=== PATIENT | female | born 1945 | race Caucasian/White ===

== ENCOUNTER → 2017-03-05 | Outpatient (CLI) | payer MEDICARE ==
[~2017-03-05] MED LIST: ASPIRIN81 MG PO; CHANTIX0.5 MG PO; CINNAMON500 MG PO; CLONIDINE HCL0.1 MG PO; ENALAPRIL MALE2.5 MG PO; FLAXSEED-FISH-400 MG PO; GARLIC1000 MG PO; LIPITOR10 MG PO; METFORMIN HCL500 MG PO; METOPROLOL-HCT1 EAC1 PO; NIASPAN1000 MG PO; PROBIOTIC & AC1 EACH PO; SELENIUM200 MCG PO; ULTRAM50 MG PO; VITAMIN B-12500 MCG PO; VITAMIN D3400 UNI1 PO; WOMEN'S MULTI1 EACH PO
--- NOTE | 2017-03-05 15:02 | Diagnostic Imaging Report ---
PROCEDURE: Frontal and lateral views of the chest. COMPARISON: None. INDICATIONS: COPD FINDINGS: Lines/tubes: None. Lungs: The lungs are well inflated and clear. There is no evidence of pneumonia or pulmonary edema. Pleura: There is no pleural effusion or pneumothorax. Heart and mediastinum: The heart and the mediastinum are normal. Bones: No acute bony abnormality. IMPRESSION: 1. No acute cardiopulmonary disease. Cristian Wheeler M.D. Dictated by: Cristian Wheeler M.D. on 03/05/2017 at 15:11 Electronically approved by: Cristian Wheeler M.D. on 03/05/2017 at 15:11
== END ==
LOC: RAD 10:37
PROVIDERS: ATTEND Internal Medicine Cardiovascular Disease
DX: J44.9 Chronic obstructive pulmonary disease, unspecified (principal)
CPT/HCPCS: 71020

== ENCOUNTER 2017-03-07 11:04 | Inpatient (IN) | payer MEDICARE ==
[~2017-03-07] VITALS: Ht 160 cm; Wt 75.9 kg
[~2017-03-07 11:04] MED LIST changes: -ULTRAM50 MG PO
[2017-03-07] MEDS ORDERED: KETOROLAC TROMETHAMINE 30 MG/ML VIAL IV STA (11:26)
[2017-03-07] MEDS ORDERED: ONDANSETRON HCL INJ 2 MG/ML VIAL IV STA (11:26)
[2017-03-07] MEDS ORDERED: SODIUM CHLORIDE 0.9% 1000ML 1,000 ML IV SCH (11:30)
[2017-03-07 11:43] LABS: BASOPHILS % 0.2 % (0.0-1.0); EOSINOPHILS % 0.1 % (0.0-6.0); HEMATOCRIT 39.7 % (34.2-44.1); HEMOGLOBIN 13.3 g/dL (12.0-16.0); LYMPHOCYTES # (AUTO) 1.3 (1.0-3.2); LYMPHOCYTES % 7.8 % (18.0-39.1); MEAN CORPUSCULAR HEMOGLOBIN 30.2 pg (28-32); MEAN CORPUSCULAR HGB CONC 33.5 g/dL (31-35); MEAN CORPUSCULAR VOLUME 90.2 fL (81-99); MONOCYTES # (AUTO) 1.1 (0.2-0.8); MONOCYTES % 6.8 % (4.4-11.3); NEUTROPHILS # (AUTO) 13.9 (2.1-6.9); NEUTROPHILS % 84.7 % (38.7-80.0); PLATELET COUNT 231 x10e3/uL (140-360); RED CELL DISTRIBUTION WIDTH 13.2 % (11.7-14.4)
[2017-03-07 11:44] LABS: BILIRUBIN,URINE NEGATIVE (NEGATIVE); KETONES,URINE TRACE (NEGATIVE); LEUKOCYTE ESTERASE ,URINE NEGATIVE (NEGATIVE); NITRITE,URINE NEGATIVE (NEGATIVE); PROTEIN,URINE DIPSTICK NEGATIVE (NEGATIVE); URINE UROBILINOGEN 0.2 mg/dL (0.2 - 1)
[2017-03-07 11:49] LABS: CLARITY,URINE CLEAR (CLEAR); COLOR,URINE STRAW (YELLOW)
[2017-03-07] MEDS ORDERED: DIATRIZOATE MEGL/DIATRIZOA SOD 30 ML BTL PO ONE (11:50)
[2017-03-07 11:58] LABS: RBC,URINE >50 /HPF (0-5)
[2017-03-07 11:59] LABS: BACTERIA,URINE FEW /HPF; TRANSITIONAL EPI CELLS,URINE FEW
[2017-03-07 12:00] LABS: EPITHELIAL CELLS,URINE RARE /LPF
[2017-03-07] MEDS ORDERED: MORPHINE SULFATE 4 MG/ML SYR IV ONE (12:00)
[2017-03-07 12:05] LABS: ALANINE AMINOTRANSFERASE 21 IU/L (0-55); ALBUMIN 3.9 g/dL (3.5-5.0); ALBUMIN/GLOBULIN RATIO 1.1 (0.8-2.0); ALKALINE PHOSPHATASE 106 IU/L (40-150); ANION GAP 10.6 mmol/L (8-16); BLOOD UREA NITROGEN 21 mg/dL (7-26); BUN/CREATININE RATIO 28 (6-25); CALCIUM 10.1 mg/dL (8.4-10.2); CARBON DIOXIDE 27 mmol/L (22-29); CHLORIDE 102 mmol/L (98-107); CREATININE, SERUM 0.75 mg/dL (0.57-1.11); EST GLOMERULAR FILTRATION RATE > 60 ML/MIN (60-); GLUCOSE 153 mg/dL (74-118); POTASSIUM 3.6 mmol/L (3.5-5.1); SODIUM 136 mmol/L (136-145)
--- NOTE | 2017-03-07 15:24 | Diagnostic Imaging Report ---
EXAM: CT Abdomen and Pelvis WITH contrast INDICATION: Left lower quadrant pain COMPARISON: CT abdomen and pelvis from 11/30/2014 TECHNIQUE: Abdomen and pelvis were scanned utilizing a multidetector helical scanner from the lung base to the pubic symphysis after administration of IV contrast. Coronal and sagittal reformations were obtained. Routine protocol was performed. Scan was performed when during portal venous phase. IV CONTRAST: 100 mL of Isovue-370 ORAL CONTRAST: None RADIATION DOSE: Total DLP: 355.8 mGy*cm Estimated effective dose: (DLP x 0.015 x size factor) mSv COMPLICATIONS: None FINDINGS: LINES and TUBES: None. LOWER THORAX: Unremarkable HEPATOBILIARY: No focal hepatic lesions. No biliary ductal dilation. GALLBLADDER: No radio-opaque stones or sludge. No wall thickening. SPLEEN: No splenomegaly. PANCREAS: No focal masses or ductal dilatation. ADRENALS: No adrenal nodules KIDNEYS/URETERS: Kidneys enhance symmetrically. No right hydronephrosis or nephrolithiasis. No cystic or solid mass lesions. 6 mm calcified stone in the proximal left ureter resulting in mild hydronephrosis. This stone is 1.9 cm below the ureteropelvic junction. 2 mm calcified stone in the inferior pole of the left kidney better seen on coronal image 56. GI TRACT: No abnormal distention, wall thickening, or evidence of bowel obstruction. Extensive diverticulosis throughout the sigmoid colon without diverticulitis. Appendix is normal. PELVIC ORGANS/BLADDER: Calcified fibroma seen in the uterus. The urinary bladder is partially collapsed. LYMPH NODES: No lymphadenopathy. VESSELS: Unremarkable. PERITONEUM / RETROPERITONEUM: No free air or fluid. BONES: Multilevel degenerative changes of the lumbar spine. SOFT TISSUES: Unremarkable. IMPRESSION: Mild obstructing left proximal ureteral stone. Signed by: Dr. Kim Sherman M.D. on 03/07/2017 3:20 PM
[2017-03-07] MEDS ORDERED: METRONIDAZOLE 500MG/NS 100ML 100 ML IV ONE (15:30)
[2017-03-07] MEDS ORDERED: KETOROLAC TROMETHAMINE 30 MG/ML VIAL IM PRN (16:30)
[2017-03-07] MEDS ORDERED: LEVOFLOXACIN 500MG/D5W 100ML 100 ML IV ONE (16:30)
[2017-03-07] MEDS ORDERED: HYDROMORPHONE 1MG/1ML INJ IV PRN (16:30)
[2017-03-07] MEDS ORDERED: ONDANSETRON HCL INJ 2 MG/ML VIAL IV PRN (16:30)
[2017-03-07] MEDS ORDERED: DEXTROSE 50% SYRINGE 50 ML IV PRN (17:00)
[2017-03-07 18:11] VITALS: BP 145/70
[2017-03-07 18:12] VITALS: BP 145/70
[2017-03-07] MEDS ORDERED: MIDAZOLAM HCL 2 MG/2 ML VIAL ONE (18:45)
[2017-03-07] MEDS ORDERED: FENTANYL CITRATE/PF 100MCG/2 ML INJ ONE (18:45)
[2017-03-07] MEDS ORDERED: BELLADONNA/OPIUM 60 MG SUPP PR ONE (18:55)
[2017-03-07] MEDS ORDERED: IOPAMIDOL 610MG/1ML 300 MG/ML VIAL IV ONE (18:55)
[2017-03-07 20:38] VITALS: BP 109/56
[2017-03-07 20:42] VITALS: BP 183/74
[2017-03-07] MEDS ORDERED: HYDRALAZINE HCL 20 MG/ML VIAL IV PRN (23:45)
[2017-03-08] VITALS (7 sets, daily range): BP systolic 117–162; BP diastolic 58–76
[2017-03-08] MEDS: SODIUM CHLORIDE 0.9% 1000ML 1,000 ML IV SCH ×4 (00:30→17:03)
[2017-03-08] MEDS: CEFTRIAXONE SOD 1 GM VIAL IV SCH ×2 (03:31→23:01)
--- NOTE | 2017-03-08 06:29 | Consultation ---
DATE OF CONSULTATION: March 07, 2017 UROLOGY CONSULTATION REASON FOR CONSULTATION: Renal colic. HISTORY OF PRESENT ILLNESS: Rosa Isela Estrada is a 71-year-old woman with no previous urological history. She reports both stress and urge type urinary incontinence. She denies ever having previous urolithiasis. She denies problems with urinary tract infections. Denies hematuria and denies any dysuria at the present time. The patient had severe left-sided flank pain and reported to the emergency room. Was found to have obstructing proximal left ureterolithiasis with hydronephrosis. Urological consultation was sought. The patient last ate at 3 a.m. this morning. She has been n.p.o. since due to her discomfort. PAST MEDICAL AND SURGICAL HISTORY 1. Status post low back surgery. 2. 1, para 1 by spontaneous vaginal delivery. 3. Status post tonsillectomy. 4. Diabetes mellitus. 5. Hypertension. ALLERGIES: CODEINE AND SOMA. SOCIAL HISTORY: The patient smokes 1-pack per day of cigarettes. Denies ethanol or drug use. 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 FAMILY HISTORY: Noncontributory to the active urological problems. REVIEW OF SYSTEMS: As consistent with the above history of present illness and past medical history, and otherwise negative for all other systems. CURRENT MEDICATIONS: Please refer to the MAR. PHYSICAL EXAMINATION GENERAL: A healthy appearing, very pleasant 71-year-old woman lying in bed in no apparent distress. VITALS: She is currently afebrile. Vital signs currently stable. ABDOMEN: Soft and nondistended. She has left costovertebral angle tenderness. Kidneys are not palpable without hepatosplenomegaly. No obvious evidence of hernia. For the remaining physical examination systems, please refer to the admission history and physical on the chart, as well as the emergency room physician note. LABORATORY STUDIES: Urine culture is pending. White blood cell count is elevated at 16,360, hemoglobin 13.3 and platelets 231,000. The patient's creatinine is normal at 0.75. Glucose slightly elevated at 153. Urinalysis significant for microhematuria and pyuria, but no significant bacteria. CT scan of the abdomen and pelvis was done per stone protocol, and showed a 2-mm stone at the inferior pole of the left kidney, and a 6 mm obstructing stone in the proximal left ureter with left-sided hydronephrosis. ASSESSMENT 1. Left renal colic. 2. Mixed type urinary incontinence. 3. Leukocytosis. 4. Pyuria. 5. Microhematuria. 6. Left small nephrolithiasis. 7. Obstructing 6 mm proximal left ureterolithiasis. 8. Left hydronephrosis due to stone. PLAN 1. I posted the patient for cystoscopy and stent placement. We will relieve her blockage, and follow this will follow the patient up long-term and manage her stones. 2. Intravenous antibiotics have been ordered by the emergency room physician as instructed. 3. The patient is a smoker, and she was encouraged to quit smoking, which has already been told to her on multiple occasions by Dr. Hager. Thank you very much for involving us in the care of your patient. Will be happy to follow her along with you, as well as an outpatient. Job#: [id number] RI cc:ERIKA HAGER MD
[2017-03-08 06:47] LABS: BASOPHILS % 0.2 % (0.0-1.0); HEMATOCRIT 33.8 % (34.2-44.1); HEMOGLOBIN 11.6 g/dL (12.0-16.0); LYMPHOCYTES % 9.3 % (18.0-39.1); MEAN CORPUSCULAR HEMOGLOBIN 30.3 pg (28-32); MEAN CORPUSCULAR HGB CONC 34.3 g/dL (31-35); MEAN CORPUSCULAR VOLUME 88.3 fL (81-99); MONOCYTES # (AUTO) 0.7 (0.2-0.8); MONOCYTES % 6.8 % (4.4-11.3); NEUTROPHILS # (AUTO) 8.7 (2.1-6.9); NEUTROPHILS % 83.2 % (38.7-80.0); PLATELET COUNT 196 x10e3/uL (140-360); RED BLOOD COUNT 3.83 x10e6/uL (3.6-5.1); RED CELL DISTRIBUTION WIDTH 13.6 % (11.7-14.4)
[2017-03-08 07:14] LABS: ANION GAP 11.7 mmol/L (8-16); BLOOD UREA NITROGEN 12 mg/dL (7-26); BUN/CREATININE RATIO 17 (6-25); CALCIUM 9.5 mg/dL (8.4-10.2); CARBON DIOXIDE 24 mmol/L (22-29); CHLORIDE 104 mmol/L (98-107); EST GLOMERULAR FILTRATION RATE > 60 ML/MIN (60-); GLUCOSE 155 mg/dL (74-118); POTASSIUM 3.7 mmol/L (3.5-5.1); SODIUM 136 mmol/L (136-145)
[2017-03-08] MEDS ORDERED: SODIUM CHLORIDE 0.9% 50ML 50 ML ONE (07:31)
[2017-03-08] MEDS ORDERED: IOPAMIDOL 370 MG/ML 200 ML INFUS..BTL INJ ONE (07:31)
[2017-03-08] MEDS: PHENAZOPYRIDINE HCL 100 MG TAB PO SCH ×3 (08:14→17:03)
[2017-03-08] MEDS ORDERED: LIDOCAINE HCL 2% LOCAL INJ 5 ML SDV VIAL INJ ONE (18:20)
[2017-03-08] MEDS ORDERED: ONDANSETRON HCL INJ 2 MG/ML VIAL ONE (18:20)
[2017-03-08] MEDS ORDERED: EPHEDRINE SULFATE INJ 50 MG/10 ML SYR ONE (18:20)
[2017-03-08] MEDS ORDERED: DEXAMETHASONE SOD PHOS INJ 4 MG/ML VIAL ONE (18:20)
[2017-03-08] MEDS ORDERED: SEVOFLURANE INHAL SOLN 250 ML PEN BTL ONE (18:20)
[2017-03-08] MEDS ORDERED: PROPOFOL IV EMULSION 10 MG/ML 20 ML VIAL ONE (18:20)
[2017-03-09 01:32] VITALS: BP 141/68
[2017-03-09] MEDS: SODIUM CHLORIDE 0.9% 1000ML 1,000 ML IV SCH (04:36)
[2017-03-09 07:42] VITALS: BP 166/79
[2017-03-09] MEDS: PHENAZOPYRIDINE HCL 100 MG TAB PO SCH (09:05)
[2017-03-09] MEDS ORDERED: ULTRAM50 MG PO (10:07)
== END 2017-03-09 11:07 | disposition home or self-care (01) | DRG 690 ==
LOC: ER 11:06 → ERHOLD 16:57 → IMCU 17:22 → OBSVTOIN 03-08 20:06
PROVIDERS: ADMIT Internal Medicine; ATTEND Internal Medicine
PROC: 0T7D8DZ Dilation of Urethra with Intraluminal Device, Via Natural or Artificial Opening Endoscopic (ICD-10-PCS; principal; 2017-03-08)
PROC: BT1F1ZZ Fluoroscopy of Left Kidney, Ureter and Bladder using Low Osmolar Contrast (ICD-10-PCS; 2017-03-08)
DX: N13.6 Pyonephrosis (principal); I10 Essential (primary) hypertension; N20.0 Calculus of kidney; E11.9 Type 2 diabetes mellitus without complications; F17.210 Nicotine dependence, cigarettes, uncomplicated; D64.9 Anemia, unspecified; N39.46 Mixed incontinence
CPT/HCPCS: 36415; 74177; 74420; 80048; 80053; 81001; 82948; 83970; 84550; 85025; 87086; 87186; 96361; 99284; G0378; J0696; J1100; J1956; J2001; J2250; J2405; J7030; Q9967

== ENCOUNTER → 2017-04-06 | Outpatient (CLI) | payer MEDICARE ==
[~2017-04-06] MED LIST changes: +METOPROLOL SUCC50 MG PO; +METOPROLOL TART50 MG PO; +ULTRAM50 MG PO
--- NOTE | 2017-04-06 14:08 | Diagnostic Imaging Report ---
PROCEDURE:X-RAY ABDOMEN - KUB COMPARISON:Abdominal CT 03/07/2017 INDICATIONS:LEFT SIDE CALCULUS CHECK UP FINDINGS: Left ureteral stent in place. Previously noted left UPJ stone which was radiographically apparent on the cruise coordinator radiograph on the prior CT is currently no longer visualized. A 0.6 cm calcification overlies the left inferior renal silhouette. A 0.3 cm calcification overlies the interpolar region of the left renal silhouette. There are no calcifications projected over the right renal shadow, expected course of the ureters or bladder. Calcified uterine fibroids. There is a non-obstructed bowel-gas pattern. There are no acute osseous abnormalities. The lung bases are clear. CONCLUSION: Left ureteral stent in place. Previous left UPJ stone is not visualized along the UPJ, ureter, or bladder. A new similar sized calcification overlying the inferior left renal silhouette may represent retrograde movement of the previous stone, a new stone, or calcified enteric contents. Dictated by: Gerardo Cevallos M.D. on 04/06/2017 at 14:08 Electronically approved by: Gerardo Cevallos M.D. on 04/06/2017 at 14:08
== END ==
LOC: RAD 13:22
PROVIDERS: ATTEND Urology
DX: N20.0 Calculus of kidney (principal); R30.0 Dysuria; T19.1XXA Foreign body in bladder, initial encounter; F17.200 Nicotine dependence, unspecified, uncomplicated
CPT/HCPCS: 74018

== ENCOUNTER → 2017-04-17 | Day surgery (SDC) | payer MEDICARE ==
[2017-04-15 11:37] LABS: BASOPHILS # (AUTO) 0.1 (0.0-0.1); BASOPHILS % 0.7 % (0.0-1.0); EOSINOPHILS # (AUTO) 0.1 (0.0-0.4); EOSINOPHILS % 1.5 % (0.0-6.0); HEMATOCRIT 39.8 % (34.2-44.1); HEMOGLOBIN 13.8 g/dL (12.0-16.0); LYMPHOCYTES # (AUTO) 1.8 (1.0-3.2); LYMPHOCYTES % 24.3 % (18.0-39.1); MEAN CORPUSCULAR HEMOGLOBIN 30.3 pg (28-32); MEAN CORPUSCULAR HGB CONC 34.7 g/dL (31-35); MEAN CORPUSCULAR VOLUME 87.3 fL (81-99); MONOCYTES # (AUTO) 0.7 (0.2-0.8); MONOCYTES % 9.9 % (4.4-11.3); NEUTROPHILS # (AUTO) 4.7 (2.1-6.9); NEUTROPHILS % 63.5 % (38.7-80.0); PLATELET COUNT 274 x10e3/uL (140-360); RED BLOOD COUNT 4.56 x10e6/uL (3.6-5.1); RED CELL DISTRIBUTION WIDTH 13.4 % (11.7-14.4)
[2017-04-15 11:53] LABS: ANION GAP 14.9 mmol/L (8-16); BLOOD UREA NITROGEN 8 mg/dL (7-26); BUN/CREATININE RATIO 11 (6-25); CALCIUM 10.6 mg/dL (8.4-10.2); CARBON DIOXIDE 26 mmol/L (22-29); CHLORIDE 99 mmol/L (98-107); EST GLOMERULAR FILTRATION RATE > 60 ML/MIN (60-); GLUCOSE 88 mg/dL (74-118); POTASSIUM 4.9 mmol/L (3.5-5.1); SODIUM 135 mmol/L (136-145)
[~2017-04-17] MED LIST changes: +CEFTRIAXONE SOD 1 GM VIAL ONE; +DEXAMETHASONE SOD PHOS INJ 4 MG/ML VIAL ONE; +EPHEDRINE SULFATE INJ 50 MG/10 ML SYR ONE; +FENTANYL CITRATE/PF 100MCG/2 ML INJ ONE; +GLYCOPYRROLATE INJ 1MG/ 5 ML SYR ONE; +LIDOCAINE HCL 2% LOCAL INJ 5 ML SDV VIAL INJ ONE; +MIDAZOLAM HCL 2 MG/2 ML VIAL ONE; +ONDANSETRON HCL INJ 2 MG/ML VIAL ONE; +PHENYLEPHRINE HCL 1% 10 MG/ML VIAL ONE; +PROPOFOL IV EMULSION 10 MG/ML 20 ML VIAL ONE; +SEVOFLURANE INHAL SOLN 250 ML PEN BTL ONE
--- NOTE | 2017-04-17 09:45 | Diagnostic Imaging Report ---
PROCEDURE:X-RAY ABDOMEN - KUB COMPARISON:04/06/2017. INDICATIONS:LEFT SIDED KIDNEY STONES FINDINGS: Stable 6 mm crescentic calculus projecting over the lower pole of the left shadow, and a 3 mm calculus projecting over the interpolar region. Unchanged position of left internal ureteral stent without additional calculus identified along the stent course. No suspicious calcifications project over the right renal shadow. Bowel gas pattern is nonobstructive. Calcified degenerated uterine fibroids are again noted. Degenerative disc changes of the lower lumbar spine. CONCLUSION: stable left renal calculi and left internal ureteral stent position relative to 04/06/2017. Dictated by: Jimy Lainez M.D. on 04/17/2017 at 9:46 Electronically approved by: Jimy Lainez M.D. on 04/17/2017 at 9:46
--- OUTSIDE RECORDS SUMMARY | 2017-04-17 10:14 | XMS REPORT ---
Author [facility] Address Unknown Phone Unavailable Care Team Providers Care Adjunct Spanish Instructor Name Role Phone ILA BURNS Unavailable Unavailable ADDI PAINTING Unavailable Unavailable MARTELL WALSH Unavailable Unavailable Problems This patient has no known problems. Allergies, Adverse Reactions, Alerts This patient has no known allergies or adverse reactions. Medications This patient has no known medications. Results Test Description Test Time Test Comments Text Results Atomic Results Result Comments ABDOMEN-1VIEW (KUB) [place] [address] Patient Name: LORENE VELASCO MR #: [id number] : 1945 Age/Sex: 71/F Req #: [id number] Adm Physician: Ordered by: ILA BURNS MD Report #: [id number] Location: OR Room/Bed: Procedure: [id number] DX/ABDOMEN-1VIEW (KUB) Exam Date: 04/17/17 Exam Time : 919 REPORT STATUS: Signed PROCEDURE: X-RAY ABDOMEN - KUB COMPARISON: 04/06/2017. INDICATIONS: LEFT SIDED KIDNEY STONES FINDINGS: Stable 6 mm crescentic calculus projecting over the lower pole of the left shadow, and a 3 mm calculus projecting over the interpolar region. Unchanged position of left internal ureteral stent without additional calculus identified along the stent course. No suspicious calcifications project over the right renal shadow. Bowel gas pattern is nonobstructive. Calcified degenerated uterine fibroids are again noted. Degenerative disc changes of the lower lumbar spine. CONCLUSION: stable left renal calculi and left internal ureteral stent position relative to 04/06/2017. Dictated by: Malou Crockett M.D. on 04/17/2017 at 9:46 Electronically approved by: Malou Crockett M.D. on 04/17/2017 at 9:46 Dictated By: MALOU CROCKETT MD 5 Transcribed By: REGAN on 04/17/17945 COPY TO: ILA BURNS MD ABDOMEN-1VIEW (KUB) [place] [address] Patient Name: LORENE VELASCO MR #: [id number] : 1945 Age/Sex: 71/F Req #: [id number] Adm Physician: Ordered by: ILA BURNS MD Report #: [id number] Location: [facility] Room/Bed: Procedure: [id number] DX/ABDOMEN-1VIEW (KUB) Exam Date: 04/06/17 Exam Time : 1330 REPORT STATUS: Signed PROCEDURE: X-RAY ABDOMEN - KUB COMPARISON: Abdominal CT 03/07/2017 INDICATIONS: LEFT SIDE CALCULUS CHECK UP FINDINGS: Left ureteral stent in place. Previously noted left UPJ stone which was radiographically apparent on the document manager radiograph on the prior CT is currently no longer visualized. A 0.6 cm calcification overlies the left inferior renal silhouette. A 0.3 cm calcification overlies the interpolar region of the left renal silhouette. There are no calcifications projected over the right renal shadow, expected course of the ureters or bladder. Calcified uterine fibroids. There is a non-obstructed bowel-gas pattern. There are no acute osseous abnormalities. The lung bases are clear. CONCLUSION: Left ureteral stent in place. Previous left UPJ stone is not visualized along the UPJ, ureter, or bladder. A new similar sized calcification overlying the inferior left renal silhouette may represent retrograde movement of the previous stone, a new stone, or calcified enteric contents. Dictated by: Gerardo Castle M.D. on 04/06/2017 at 14:08 Electronically approved by: Gerardo Castle M.D. on 04/06/2017 at 14:08 Dictated By: GERARDO CASTLE MD 07 Transcribed By: REGAN on 04/06/171407 COPY TO: ILA BURNS MD CT ABDOMEN/PELVIS W [place] [address] Patient Name: LORENE VELASCO MR #: [id number] : 1945 Age/Sex: 71/F Req #: [id number] Adm Physician: Ordered by: ADDI PAINTING MD Report #: [id number] Location: ER Room/Bed: Procedure: [id number] CT/CT ABDOMEN/PELVIS W Exam Date: 03/07/17 Exam Time: 1441 REPORT STATUS: Signed EXAM: CT Abdomen and Pelvis WITH contrast INDICATION: Left lower quadrant pain COMPARISON: CT abdomen and pelvis from 11/30/2014 TECHNIQUE: Abdomen and pelvis were scanned utilizing a multidetector helical scanner from the lung base to the pubic symphysis after administration of IV contrast. Coronal and sagittal reformations were obtained. Routine protocol was performed. Scan was performed when during portal venous phase. IV CONTRAST: 100 mL of Isovue-370 ORAL CONTRAST: None RADIATION DOSE: Total DLP: 355.8 mGy*cm Estimated effective dose: (DLP x 0.015 x size factor) mSv COMPLICATIONS: None FINDINGS: LINES and TUBES: None. LOWER THORAX: Unremarkable HEPATOBILIARY: No focal hepatic lesions. No biliary ductal dilation. GALLBLADDER: No radio-opaque stones or sludge. No wall thickening. SPLEEN: No splenomegaly. PANCREAS: No focal masses or ductal dilatation. ADRENALS: No adrenal nodules KIDNEYS/URETERS: Kidneys enhance symmetrically. No right hydronephrosis or nephrolithiasis. No cystic or solid mass lesions. 6 mm calcified stone in the proximal left ureter resulting in mild hydronephrosis. This stone is 1.9 cm below the ureteropelvic junction. 2 mm calcified stone in the inferior pole of the left kidney better seen on coronal image 56. GI TRACT: No abnormal distention, wall thickening, or evidence of bowel obstruction. Extensive diverticulosis throughout the sigmoid colon without diverticulitis. Appendix is normal. PELVIC ORGANS/BLADDER: Calcified fibroma seen in the uterus. The urinary bladder is partially collapsed. LYMPH NODES: No lymphadenopathy. VESSELS: Unremarkable. PERITONEUM / RETROPERITONEUM: No free air or fluid. BONES: Multilevel degenerative changes of the lumbar spine. SOFT TISSUES: Unremarkable. IMPRESSION: Mild obstructing left proximal ureteral stone. Signed by: Dr. Neeta Barlow M.D. on 03/07/2017 3:20 PM Dictated By: NEETA BARLOW MD 1520 Transcribed By: LETA on 03/07/17 1520 COPY TO: ADDI PAINTING MD CHEST 2 VIEWS [place] [address] Patient Name: LORENE VELASCO MR #: [id number] : 1945 Age/Sex: 71/F Req #: [id number] Adm Physician: Ordered by: MARTELL WALSH MD Report #: [id number] Location: [facility] Room/Bed: Procedure: [id number] DX/CHEST 2 VIEWS Exam Date: 03/05/17 Exam Time : 1115 REPORT STATUS: Signed PROCEDURE: Frontal and lateral views of the chest. COMPARISON: None. INDICATIONS: COPD FINDINGS : Lines/tubes: None. Lungs: The lungs are well inflated and clear. There is no evidence of pneumonia or pulmonary edema. Pleura: There is no pleural effusion or pneumothorax. Heart and mediastinum: The heart and the mediastinum are normal. Bones: No acute bony abnormality. IMPRESSION: 1. No acute cardiopulmonary disease. Cristian Cam M.D. Dictated by: Cristian Cam M.D. on 03/05/2017 at 15: 11 Electronically approved by: Cristian Cam M.D. on 03/05/2017 at 15:11 Dictated By: CASEY CAM MD, MD 10 Transcribed By: REGAN on 03/05 COPY TO: MARTELL WALSH MD
--- NOTE | 2017-06-09 09:04 | Operative Report ---
DATE OF PROCEDURE: April 17, 2017 PREOPERATIVE DIAGNOSIS: Left nephrolithiasis. POSTOPERATIVE DIAGNOSIS: Left nephrolithiasis. OPERATIONS PERFORMED 1. Staged left-sided extracorporeal shockwave lithotripsy. 2. Supervision of fluoroscopy. No radiologist present. ANESTHESIA: General. COMPLICATIONS: None. CLINICAL SUMMARY: Rosa Isela Estrada is a 71-year-old woman with left nephrolithiasis who is brought for a staged procedure. She is aware of the risks of bleeding, infection, injury to adjacent structures, need for additional procedures, and elected to proceed. OPERATIVE PROCEDURE IN DETAIL: Informed consent was verified. Rosa Isela Estrada was properly identified and taken to the operating room and placed on the lithotripsy table in the supine position. Anesthesia was uneventfully begun. The patient's left nephrolithiasis was localized with biplanar fluoroscopy. A total of 3000 shocks were delivered with excellent fragmentation of the left nephrolithiasis. The patient was then uneventfully reversed from anesthesia and taken to the recovery room in stable condition. There were no complications to the procedure. She tolerated the procedure well. Plans will be to return the patient to the operating room to remove her stent, perform a ureteroscopy and manage any residual stones. Job#: [id number] RI cc:ERIKA ARDON MD
== END | disposition home or self-care (01) ==
LOC: OR 10:12
PROVIDERS: ATTEND Urology
DX: N20.0 Calculus of kidney (principal); Z96.0 Presence of urogenital implants; I10 Essential (primary) hypertension; I49.9 Cardiac arrhythmia, unspecified; E11.9 Type 2 diabetes mellitus without complications; K58.9 Irritable bowel syndrome, unspecified; R05 Cough; F17.200 Nicotine dependence, unspecified, uncomplicated; Z01.810 Encounter for preprocedural cardiovascular examination; Z01.812 Encounter for preprocedural laboratory examination; Z79.82 Long term (current) use of aspirin
CPT/HCPCS: 36415 ×2; 50590; 74018; 80048; 82948; 85025; 93005; J0696; J1100; J2001; J2250; J2370; J2405

== ENCOUNTER → 2017-06-05 | Day surgery (SDC) | payer MEDICARE ==
[2017-06-04 09:38] LABS: BASOPHILS # (AUTO) 0.1 (0.0-0.1); BASOPHILS % 0.7 % (0.0-1.0); EOSINOPHILS # (AUTO) 0.1 (0.0-0.4); EOSINOPHILS % 1.2 % (0.0-6.0); HEMATOCRIT 40.7 % (34.2-44.1); HEMOGLOBIN 13.8 g/dL (12.0-16.0); LYMPHOCYTES # (AUTO) 1.9 (1.0-3.2); LYMPHOCYTES % 22.3 % (18.0-39.1); MEAN CORPUSCULAR HEMOGLOBIN 29.4 pg (28-32); MEAN CORPUSCULAR HGB CONC 33.9 g/dL (31-35); MEAN CORPUSCULAR VOLUME 86.8 fL (81-99); MONOCYTES % 11.8 % (4.4-11.3); NEUTROPHILS # (AUTO) 5.3 (2.1-6.9); NEUTROPHILS % 63.8 % (38.7-80.0); PLATELET COUNT 277 x10e3/uL (140-360); RED BLOOD COUNT 4.69 x10e6/uL (3.6-5.1); RED CELL DISTRIBUTION WIDTH 13.6 % (11.7-14.4)
[2017-06-04 09:53] LABS: ANION GAP 11.8 mmol/L (8-16); BLOOD UREA NITROGEN 10 mg/dL (7-26); BUN/CREATININE RATIO 14 (6-25); CALCIUM 10.7 mg/dL (8.4-10.2); CARBON DIOXIDE 28 mmol/L (22-29); CHLORIDE 98 mmol/L (98-107); CREATININE, SERUM 0.74 mg/dL (0.57-1.11); EST GLOMERULAR FILTRATION RATE > 60 ML/MIN (60-); GLUCOSE 99 mg/dL (74-118); POTASSIUM 3.8 mmol/L (3.5-5.1); SODIUM 134 mmol/L (136-145)
[~2017-06-05] MED LIST changes: +BELLADONNA/OPIUM 60 MG SUPP PR ONE; +GENTAMICIN 80MG/NS 100 ML 100 ML IV ONE; -GLYCOPYRROLATE INJ 1MG/ 5 ML SYR ONE; +IOPAMIDOL 610MG/1ML 300 MG/ML VIAL IV ONE; -PHENYLEPHRINE HCL 1% 10 MG/ML VIAL ONE; +VASOPRESSIN INJ 20 UNIT/ML VIAL ONE
--- NOTE | 2017-06-05 11:24 | Diagnostic Imaging Report ---
PROCEDURE:X-RAY ABDOMEN - KUB COMPARISON:04/17/2017 INDICATIONS:PREOPERATIVE XRAY FOR STENT REMOVAL SURGERY FINDINGS: One view of the abdomen (AP supine). A left nephroureteral stent is in expected position. Multiple stones are projected over the interpolar region and inferior pole of the left kidney, measuring up to 4 mm. No dilated loops of bowel or abnormal air-fluid levels patterns. No free air underneath the diaphragm. Visualized portions of the lung bases are clear. Five non-rib bearing lumbar type vertebral bodies identified. There are multilevel degenerative changes of the lower lumbar spine and sacroiliac joints with at least moderate spondylosis at L3-L4 and L4-L5. Stable pelvic calcifications are likely related to fibroids. CONCLUSION: Stable position of the left nephroureteral stent. Left renal calculi as above. Dictated by: Jong Colon M.D. on 06/05/2017 at 11:25 Electronically approved by: Jong Colon M.D. on 06/05/2017 at 11:25
--- NOTE | 2017-07-21 02:01 | Operative Report ---
DATE OF PROCEDURE: June 05, 2017 PREOPERATIVE DIAGNOSES 1. Left nephrolithiasis. 2. Left indwelling ureteral stent. POSTOPERATIVE DIAGNOSIS: 1. Left nephrolithiasis. 2. Left indwelling ureteral stent. 3. Grade-2 cystocele. 4. Grade-1 rectocele. 5. 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 OPERATIONS PERFORMED: Note: These are all staged procedures as part of multistage, multistep process of managing patient's urolithiasis. 1. Cystourethroscopy with complicated removal of left indwelling ureteral stent (separate procedure performed with separate scope for the diagnosis of stent). 2. Left ureteroscopy with stone manipulation and extraction (separate procedure performed twice for 2 separate ureteral stones). 3. Radiological services for supervision and interpretation of ureteroscopy. 4. Interpretation of retrograde ureteropyelography. 5. Pelvic examination under anesthesia. ANESTHESIA: General. COMPLICATIONS: None. CLINICAL SUMMARY: Rosa Isela Estrada is a 71-year-old woman, who underwent prior stone procedure. She was brought to remove her stent and hopefully render her stone-free. She is aware the risks of the risks of bleeding infection injury to adjacent structures need for additional procedures and elected to proceed. OPERATIVE PROCEDURE IN DETAIL: Informed consent was verified. Rosa Isela Estrada was properly identified taken to the operating room. Placed on the cystoscopy table in supine position. Anesthesia was uneventfully begun. The patient was then carefully and gently repositioned in the dorsal lithotomy position with all pressure points well padded. Her genitalia were prepared and draped in usual sterile fashion. A 22.5-Yi cystoscope sheath with obturator in place was atraumatically inserted into the patient's urethra and the bladder was drained. Panendoscopy of urinary bladder revealed no suspicious mucosal lesions, no tumors, no stones, and no diverticula. Normally positioned and configured ureteral orifices were identified. There was stent emerging from left ureteral orifice. A guidewire was then placed alongside the stent and guided below the patient's kidneys. The stent was then grasped, completely removed and discarded. Semirigid ureteroscope was then placed alongside the guidewire and guided into the patient's left ureter. No stones were identified. A secondary guidewire was placed. Flexible ureteroscope was then placed over the guidewire and guided to level of patient's kidney. Panendoscopy revealed 2 stones. One stone was grasped with Nitinol tipless basket and extracted atraumatically. The ureteroscope was reintroduced. Careful panendoscopy of the intrarenal pelvic system revealed a Drew's plaque, but only 1 stone remaining. We grasped the 2nd stone and extracted it atraumatically. Interpretation of retrograde ureteropyelography: Contrast was instilled in retrograde fashion on the left hand side. Mild fullness of the collecting system was noted. There was mild caliceal blunting. No suspicious mucosal lesions could be identified. The ureter was unremarkable. Unobstructed drainage was observed fluoroscopically at the end of the case. The patient's bladder was then drained. Cystoscope was withdrawn. Pelvic examination under anesthesia revealed a grade-2 cystocele, grade-1 rectocele. There was atrophic vaginitis with vaginal os stenosis. The patient was then uneventfully reversed from anesthesia and taken to recovery room in stable condition. There were no complications to the procedure. She tolerated the procedure well. Explicit postoperative instructions were given. Will follow the patient up in the office. Job#: [id number] CQ cc:ERIKA ARDON MD
== END | disposition home or self-care (01) ==
LOC: OR 10:24
PROVIDERS: ATTEND Urology
DX: N20.0 Calculus of kidney (principal); Z46.6 Encounter for fitting and adjustment of urinary device; N28.89 Other specified disorders of kidney and ureter; N39.0 Urinary tract infection, site not specified; N81.10 Cystocele, unspecified; N81.6 Rectocele; N95.2 Postmenopausal atrophic vaginitis; I10 Essential (primary) hypertension; E78.6 Lipoprotein deficiency; E11.9 Type 2 diabetes mellitus without complications; K58.9 Irritable bowel syndrome, unspecified; I49.1 Atrial premature depolarization; Z01.810 Encounter for preprocedural cardiovascular examination; Z01.812 Encounter for preprocedural laboratory examination; Z79.84 Long term (current) use of oral hypoglycemic drugs; Z87.01 Personal history of pneumonia (recurrent)
CPT/HCPCS: 36415 ×2; 52352; 74018; 74420; 80048; 82948; 85025; 88300; 93005; J0696; J1100; J1580; J2001; J2250; J2405; Q9967

== ENCOUNTER 2017-06-06 08:59 | Inpatient (IN) | payer MEDICARE ==
[~2017-06-06] VITALS: Ht 160 cm; Wt 72.6 kg
[~2017-06-06 08:59] MED LIST changes: -BELLADONNA/OPIUM 60 MG SUPP PR ONE; -CEFTRIAXONE SOD 1 GM VIAL ONE; -DEXAMETHASONE SOD PHOS INJ 4 MG/ML VIAL ONE; -EPHEDRINE SULFATE INJ 50 MG/10 ML SYR ONE; -FENTANYL CITRATE/PF 100MCG/2 ML INJ ONE; -GENTAMICIN 80MG/NS 100 ML 100 ML IV ONE; -IOPAMIDOL 610MG/1ML 300 MG/ML VIAL IV ONE; -LIDOCAINE HCL 2% LOCAL INJ 5 ML SDV VIAL INJ ONE; -MIDAZOLAM HCL 2 MG/2 ML VIAL ONE; -ONDANSETRON HCL INJ 2 MG/ML VIAL ONE; -PROPOFOL IV EMULSION 10 MG/ML 20 ML VIAL ONE; -SEVOFLURANE INHAL SOLN 250 ML PEN BTL ONE; -VASOPRESSIN INJ 20 UNIT/ML VIAL ONE
[2017-06-06] MEDS ORDERED: ACETAMINOPHEN 1000 MG/100 ML IV STA (09:16)
[2017-06-06] MEDS ORDERED: SODIUM CHLORIDE 0.9% 1000ML 1,000 ML IV STA ×2 (09:16→10:28)
--- NOTE | 2017-06-06 09:56 | Diagnostic Imaging Report ---
EXAMINATION: Chest, CHEST SINGLE (PORTABLE) INDICATION: Chest pain COMPARISON: Chest 2 views 03/05/2017 FINDINGS: LINES: None. Heart: Normal cardiac silhouette. Vascular: The pulmonary vasculature is within normal limits. Atherosclerotic calcifications of the aortic arch. Mediastinum: No mediastinal, hilar, or axillary mass or lymphadenopathy. Lungs: No parenchymal mass. No focal consolidation. Bibasilar atelectasis. Pleura: No pleural effusion. No pneumothorax. Bones: No acute osseous abnormality. Degenerative changes of the thoracic spine. Soft tissues: Normal. Impression: No acute radiographic abnormality. Signed by: Dr. Medardo Haines M.D. on 06/06/2017 9:52 AM
[2017-06-06 10:04] LABS: BASOPHILS % 0.3 % (0.0-1.0); LYMPHOCYTES # (AUTO) 0.4 (1.0-3.2); MEAN CORPUSCULAR HEMOGLOBIN 29.9 pg (28-32); MEAN CORPUSCULAR HGB CONC 35.1 g/dL (31-35); MEAN CORPUSCULAR VOLUME 85.1 fL (81-99); MONOCYTES # (AUTO) 0.5 (0.2-0.8); MONOCYTES % 3.6 % (4.4-11.3); NEUTROPHILS # (AUTO) 11.9 (2.1-6.9); NEUTROPHILS % 92.6 % (38.7-80.0); PLATELET COUNT 236 x10e3/uL (140-360); RED BLOOD COUNT 4.35 x10e6/uL (3.6-5.1); RED CELL DISTRIBUTION WIDTH 13.9 % (11.7-14.4)
[2017-06-06 10:17] LABS: INR 1.23; PROTHROMBIN TIME 14.6 seconds (11.9-14.5)
[2017-06-06 10:18] LABS: PARTIAL THROMBOPLASTIN TIME 37.3 seconds (23.8-35.5)
[2017-06-06 10:28] LABS: ALANINE AMINOTRANSFERASE 23 IU/L (0-55); ALBUMIN 3.1 g/dL (3.5-5.0); ALBUMIN/GLOBULIN RATIO 0.9 (0.8-2.0); ALKALINE PHOSPHATASE 82 IU/L (40-150); ANION GAP 13.7 mmol/L (8-16); BLOOD UREA NITROGEN 12 mg/dL (7-26); BUN/CREATININE RATIO 15 (6-25); CARBON DIOXIDE 24 mmol/L (22-29); CHLORIDE 95 mmol/L (98-107); CREATINE KINASE 102 IU/L (29-168); EST GLOMERULAR FILTRATION RATE > 60 ML/MIN (60-); GLUCOSE 110 mg/dL (74-118); MAGNESIUM 1.3 MG/DL (1.3-2.1); POTASSIUM 3.7 mmol/L (3.5-5.1); SODIUM 129 mmol/L (136-145)
[2017-06-06] MEDS ORDERED: MEROPENEM 1GRAM 1 GM in SODIUM CHLORIDE 0.9% 100 ML 100 ML IV SCH (10:30)
--- NOTE | 2017-06-06 10:55 | Diagnostic Imaging Report ---
EXAM: CT Abdomen and Pelvis WITHOUT contrast INDICATION: Abdominal pain COMPARISON: Retrograde pyelogram 06/05/2017. TECHNIQUE: Abdomen and pelvis were scanned utilizing a multidetector helical scanner from the lung base to the pubic symphysis. Coronal and sagittal reformations were obtained. The lack of intravenous contrast limits the evaluation of the solid organs, vasculature, and possible lymphadenopathy. Protocol: General survey without contrast IV CONTRAST: No intravenous contrast was administered as per physician request. ORAL CONTRAST: None. COMPLICATIONS: None. RADIATION DOSE: Total Exam DLP: 565 mGy*cm. CTDIvol has been reviewed. It is below the limits set by the Radiation Protocol Committee (RPC). FINDINGS: LINES: None. Lower thorax: Bibasilar atelectasis. No pneumothorax. No pleural effusion. Liver: No focal mass. No hepatomegaly. Normal parenchyma. Gallbladder: No gallstones. No gallbladder distention. Vicarious excretion of contrast in the gallbladder. Biliary tree: No intrahepatic duct dilation. No extrahepatic duct dilation. Spleen: No splenomegaly. No focal mass. Pancreas: No focal mass. Normal pancreatic duct. No peripancreatic inflammatory changes. Kidneys: Punctate calculus is present in the inferior pole of the left kidney, series 3 image 70. Minimal inflammatory changes are present around the left kidney and proximal left ureter. No drainable fluid collection. No obstructing calculi. No hydronephrosis. No cysts. No right perinephric soft tissue inflammatory changes. Adrenal glands: No adrenal nodules.. Bladder: Normal urinary bladder. Pelvic organs: Partially calcified uterine fibroid. Normal ovaries. GI: No bowel wall thickening. No air-fluid levels. The stomach and small bowel are normal. Multiple diverticuli are present in the descending and sigmoid colon, without adjacent soft tissue inflammatory changes. Normal appendix. A moderate amount of retained feces limits intraluminal evaluation of the colon. Peritoneum/retroperitoneum: No pneumoperitoneum. No ascites. No drainable fluid collection. Lymph nodes: No lymphadenopathy. . Vessels: No focal abnormality. Aortoiliac atherosclerotic calcifications. Limited evaluation. Bones: No focal abnormality. Degenerative changes of the lumbar spine. Soft tissues: No focal abnormality. IMPRESSION: No acute abnormality of the abdomen and pelvis. Nonobstructing left nephrolithiasis. The minimal inflammatory changes around the left kidney and proximal left ureter may represent recent instrumentation. Diverticulosis without evidence of diverticulitis. Signed by: Dr. Medardo Haines M.D. on 06/06/2017 10:52 AM
[2017-06-06] MEDS: MEROPENEM 1 GM VIAL IV SCH ×2 (10:59→18:37)
[2017-06-06] MEDS ORDERED: VANCOMYCIN 1GM/NS 250 ML 250 ML IV STA (11:00)
[2017-06-06 11:17] LABS: CLARITY,URINE CLEAR (CLEAR); COLOR,URINE YELLOW (YELLOW); LEUKOCYTE ESTERASE ,URINE NEGATIVE (NEGATIVE)
[2017-06-06 11:18] LABS: BILIRUBIN,URINE NEGATIVE (NEGATIVE); KETONES,URINE NEGATIVE (NEGATIVE); NITRITE,URINE POSITIVE (NEGATIVE); PROTEIN,URINE DIPSTICK 2+ (NEGATIVE); URINE UROBILINOGEN 1 mg/dL (0.2 - 1)
[2017-06-06] MEDS ORDERED: SODIUM CHLORIDE 0.9% 1000ML 1,000 ML ONE (11:18)
[2017-06-06] MEDS ORDERED: SODIUM CHLORIDE 0.9% 1000ML 1,000 ML IV ONE (11:30)
[2017-06-06 11:38] LABS: ABG HCO3 21 mmol/L (23-28); ABG PCO2 31 mmHg (41-51); ABG PH 7.42 (7.31-7.41); ABG PO2 68 mmHg (80-105)
[2017-06-06 11:49] LABS: BACTERIA,URINE MODERATE /HPF; EPITHELIAL CELLS,URINE FEW /LPF; RBC,URINE >50 /HPF (0-5); WBC,URINE (MAN) >50 /HPF (0-5)
[2017-06-06 11:50] LABS: MUCUS,URINE FEW (RARE)
[2017-06-06] MEDS ORDERED: ONDANSETRON HCL 4 MG ORAL DISINTEGRATING TAB PO PRN (12:30)
[2017-06-06] MEDS: SODIUM CHLORIDE 0.9% 1000ML 1,000 ML IV SCH ×2 (12:50→19:15)
--- NOTE | 2017-06-06 13:54 | Diagnostic Imaging Report ---
EXAMINATION: Chest, CHEST XRAY LINE PLACEMENT INDICATION: Chest pain COMPARISON: Portable chest 06/06/2017 FINDINGS: LINES: Left peripherally inserted central venous catheter with tip projecting over the expected region of the superior vena cava. Heart: Normal cardiac silhouette. Vascular: The pulmonary vasculature is within normal limits. Atherosclerotic calcifications of the aortic arch. Mediastinum: No mediastinal, hilar, or axillary mass or lymphadenopathy. Lungs: No parenchymal mass. No focal consolidation. Bibasilar atelectasis. Pleura: No pleural effusion. No pneumothorax. Bones: No acute osseous abnormality. Degenerative changes of the thoracic spine. Soft tissues: Normal. Impression: No acute radiographic abnormality. Signed by: Dr. Medardo Haines M.D. on 06/06/2017 1:50 PM
[2017-06-06] MEDS ORDERED: ALBUTEROL SULF 0.083% NEB SOLN 3 ML NEB NEB PRN (14:30)
[2017-06-06] MEDS ORDERED: IPRATROPIUM BROMIDE 0.02% 2.5 ML NEB NEB PRN (14:30)
[2017-06-06 14:39] LABS: ALANINE AMINOTRANSFERASE 70 IU/L (0-55); ALBUMIN 2.6 g/dL (3.5-5.0); ALKALINE PHOSPHATASE 74 IU/L (40-150); ANION GAP 10.5 mmol/L (8-16); BLOOD UREA NITROGEN 10 mg/dL (7-26); BUN/CREATININE RATIO 14 (6-25); CALCIUM 8.5 mg/dL (8.4-10.2); CARBON DIOXIDE 21 mmol/L (22-29); CHLORIDE 104 mmol/L (98-107); CREATININE, SERUM 0.71 mg/dL (0.57-1.11); EST GLOMERULAR FILTRATION RATE > 60 ML/MIN (60-); GLUCOSE 103 mg/dL (74-118); POTASSIUM 3.5 mmol/L (3.5-5.1); SODIUM 132 mmol/L (136-145)
[2017-06-06 14:42] LABS: MAGNESIUM 1.1 MG/DL (1.3-2.1)
[2017-06-06] MEDS ORDERED: POTASSIUM CHLORIDE 20 MEQ TAB CR PO STA (14:51)
[2017-06-06] MEDS ORDERED: KETOROLAC TROMETHAMINE 30 MG/ML VIAL IV STA (14:58)
[2017-06-06] MEDS ORDERED: MAGNESIUM SULFATE 2GM/50ML 50 ML IV ONE (15:00)
--- NOTE | 2017-06-06 15:04 | Diagnostic Imaging Report ---
EXAM: CT Chest WITH contrast INDICATION: Chest pain COMPARISON: None available TECHNIQUE: Chest was scanned utilizing a multidetector helical scanner from the lung apex through the level of the diaphragm after administration of IV contrast. Coronal and sagittal reconstructions were submitted for interpretation. Protocol: Pulmonary embolus protocol IV CONTRAST: 100 mL of Isovue 370 COMPLICATIONS: None RADIATION DOSE: Total exam DLP: 500.8 mGy*cm. CTDIvol has been reviewed. It is below the limits set by the Radiation Protocol Committee (RPC). FINDINGS: LINES/ TUBES: Left peripherally inserted central venous catheter with tip projecting over the expected region of the superior vena cava. Heart: No cardiomegaly. No pericardial effusion. Vessels: No intraluminal filling defect within the main and right and left main pulmonary arteries. Limited distal evaluation due to contrast bolus timing. Atherosclerotic calcifications of the thoracic aorta and coronary arteries. Mediastinum: No mediastinal or hilar mass or lymphadenopathy. Normal thyroid. Lungs: No parenchymal mass. Airspace opacity is present in the left upper lobe, series 3 image 35. Bibasilar atelectasis. Pleura: Small right pleural effusion. No pneumothorax. Soft tissues: Normal. No axillary mass or lymphadenopathy. Bones: No acute osseous abnormality. Degenerative changes of the thoracic spine. Adrenal glands: No adrenal nodules.. Abdomen: The partially visualized portions of the upper abdomen are unremarkable.. IMPRESSION: 1. No evidence of pulmonary arterial embolism or thrombosis within the main pulmonary artery. Limited distal evaluation. 2. Airspace opacity in the left upper lobe may represent a developing pneumonia. Signed by: Dr. Medardo Haines M.D. on 06/06/2017 3:00 PM
[2017-06-06] MEDS: AZITHROMYCIN 500MG/NS 250 ML 250 ML IV SCH (15:52)
[2017-06-06] MEDS: ACETAMINOPHEN 1000 MG/100 ML IV PRN (16:30)
[2017-06-06] MEDS: ALBUTEROL/IPRATROPIUM 3 ML NEB INH PRN ×2 (16:39→20:30)
[2017-06-06] MEDS ORDERED: IOPAMIDOL 370 MG/ML 200 ML INFUS..BTL INJ ONE (18:23)
[2017-06-06] MEDS ORDERED: SODIUM CHLORIDE 0.9% 50ML 50 ML ONE (18:23)
[2017-06-06 19:32] LABS: CREATINE KINASE MB 1.3 ng/mL (0-5.0)
[2017-06-06] MEDS ORDERED: INSULIN REGULAR, HUMAN 100 UNIT/1 ML 3ML VIAL ONE (20:11)
[2017-06-07] MEDS: VANCOMYCIN 1GM/NS 250 ML 250 ML IV SCH ×3 (01:04→22:59)
[2017-06-07] MEDS: SODIUM CHLORIDE 0.9% 1000ML 1,000 ML IV SCH ×4 (01:04→23:00)
[2017-06-07] MEDS: ALBUTEROL/IPRATROPIUM 3 ML NEB INH PRN ×2 (01:30→07:38)
[2017-06-07 02:50] LABS: CREATINE KINASE MB 1.6 ng/mL (0-5.0)
[2017-06-07] MEDS: MEROPENEM 1 GM VIAL IV SCH ×3 (04:30→19:50)
[2017-06-07 07:15] LABS: BASOPHILS % 0.3 % (0.0-1.0); HEMATOCRIT 31.6 % (34.2-44.1); HEMOGLOBIN 10.9 g/dL (12.0-16.0); LYMPHOCYTES # (AUTO) 0.5 (1.0-3.2); LYMPHOCYTES % 6.8 % (18.0-39.1); MEAN CORPUSCULAR HEMOGLOBIN 29.9 pg (28-32); MEAN CORPUSCULAR HGB CONC 34.5 g/dL (31-35); MEAN CORPUSCULAR VOLUME 86.6 fL (81-99); MONOCYTES # (AUTO) 0.4 (0.2-0.8); MONOCYTES % 5.8 % (4.4-11.3); NEUTROPHILS # (AUTO) 5.7 (2.1-6.9); NEUTROPHILS % 86.5 % (38.7-80.0); PLATELET COUNT 159 x10e3/uL (140-360); RED BLOOD COUNT 3.65 x10e6/uL (3.6-5.1); RED CELL DISTRIBUTION WIDTH 13.9 % (11.7-14.4)
[2017-06-07 07:53] LABS: ALANINE AMINOTRANSFERASE 95 IU/L (0-55); ALBUMIN 2.3 g/dL (3.5-5.0); ALBUMIN/GLOBULIN RATIO 0.9 (0.8-2.0); ALKALINE PHOSPHATASE 88 IU/L (40-150); ANION GAP 10.2 mmol/L (8-16); BLOOD UREA NITROGEN 8 mg/dL (7-26); BUN/CREATININE RATIO 13 (6-25); CALCIUM 8.4 mg/dL (8.4-10.2); CARBON DIOXIDE 22 mmol/L (22-29); CHLORIDE 106 mmol/L (98-107); CREATININE, SERUM 0.61 mg/dL (0.57-1.11); EST GLOMERULAR FILTRATION RATE > 60 ML/MIN (60-); GLUCOSE 92 mg/dL (74-118); MAGNESIUM 1.4 MG/DL (1.3-2.1); POTASSIUM 3.2 mmol/L (3.5-5.1); SODIUM 135 mmol/L (136-145)
--- NOTE | 2017-06-07 09:23 | History and Physical ---
CHIEF COMPLAINT: Ripqa[age]wiim[age]bjrw-old female comes in with not feeling well, fever and chills. HISTORY OF PRESENTING ILLNESS: This is Ms. Rosa Isela Estrada who is a 71-year-old female. Patient comes in with fever and chills measured at home at 102 degrees. The patient recently had a stent removed by her urologist, and patient started to have feeling bad and also having chills and rigors, and came into emergency room, was found to have sepsis and admitted for sepsis. PAST MEDICAL HISTORY: History of irritable bowel syndrome, history of hyperlipidemia, history of kidney stones, history of looks like COPD. MEDICATIONS: Includes atorvastatin, enalapril, metformin, metoprolol, hydrochlorothiazide. Patient also is seen by Dr. Garcia, animal shelter clerk. PAST SURGICAL HISTORY: Includes history of tonsillectomy and history of back surgery. NO KNOWN ALLERGIES ARE NOTED. SOCIAL HISTORY: History of smoking, smokes about a pack a day. FAMILY HISTORY: Noncontributory. REVIEW OF SYSTEMS: Negative for chest pain. Positive for shortness of breath. Positive for nausea. No vomiting, no diarrhea, no constipation, no rectal bleeding. No hematochezia, no hematemesis. Positive for fever. Positive for chills. Positive for rigors and positive for myalgia. PHYSICAL EXAMINATION: VITAL SIGNS: On arrival vitals were pulse of 63; respiration of 20; blood pressure 145/75, had dropped down considerably. The patient although had a fever of 101.5, was given fluids here. APPEARANCE: In no acute distress right now, the patient is on 5 liters of oxygen. HEENT: Normocephalic, atraumatic. Pupils react to light and accommodation. CVS: S1 and S2 normal. Regular rate and rhythm. LUNGS: Decreased breath sounds all over. ABDOMEN: Nontender, nondistended. EXTREMITIES: No clubbing, no cyanosis, no edema. NEUROLOGICAL: No deficits noted. LABS: White count was 12.8 on arrival, has come down to 6.5; the platelet count is 236,000; hemoglobin of 13; hematocrit of 37.0. Chemistries: Sodium is 132 with anion gap of 10.5. Lactic acid was good. Magnesium was 1.1. Elevation of AST and ALT at 70 with alkaline phosphatase of 74. Patient's troponins have been negative so far. IMAGING STUDIES: Chest CT showed airspace opacity in the left upper lobe, may represent developing pneumonia, no evidence of PE seen. Abdominal CT showed no acute abnormality of the abdomen and pelvis, nonobstructing left nephrolithiasis. ASSESSMENT: 1. Severe sepsis from probably urinary tract infection. Urine cultures have been sent. 2. Probable developing pneumonia. She antibiotics. Patient is currently on Zithromax, Zosyn, and vancomycin. Will continue monitoring the patient. Patient is feeling better. Albuterol and Atrovent treatments have been started and also fluids have been started. Will keep the patient in telemetry and also continue monitoring her stay. Further recommendations on clinical course, and also patient given smoking cessation advise. Will check labs tomorrow and keep her in-house. Job#: [id number]
[2017-06-07 10:49] LABS: BAND NEUTROPHILS % (MANUAL) 11 %; LYMPHOCYTES % (MANUAL) 12 % (19-48); MONOCYTES % (MANUAL) 5 % (3.4-9.0); NEUTROPHILS % (MANUAL) 72 % (40-74); PLATELET ESTIMATE ADEQUATE; PLATELET MORPHOLOGY COMMENT NORMAL; RBC MORPHOLOGY COMMENT NORMAL
[2017-06-07] MEDS: MORPHINE SULFATE 2 MG/ML SYR IV PRN ×3 (11:10→19:58)
[2017-06-07] MEDS: ACETAMINOPHEN 1000 MG/100 ML IV PRN (13:00)
[2017-06-07] MEDS: LEVALBUTEROL HCL SOLN NEBU 1.25 MG/3 ML NEB INH SCH ×2 (13:15→18:45)
[2017-06-07] MEDS ORDERED: ACETAMINOPHEN 1000 MG/100 ML IV PRN (13:15)
--- NOTE | 2017-06-07 13:53 | Diagnostic Imaging Report ---
EXAMINATION: Chest, CHEST SINGLE (PORTABLE) INDICATION: Chest pain COMPARISON: Portable chest 06/06/2017 FINDINGS: LINES: Left peripherally inserted central venous catheter with tip projecting over the expected region of the superior vena cava. Heart: Normal cardiac silhouette. Vascular: The pulmonary vasculature is within normal limits. Atherosclerotic calcifications of the aortic arch. Mediastinum: No mediastinal, hilar, or axillary mass or lymphadenopathy. Lungs: No parenchymal mass. Bilateral diffuse airspace opacifications. Pleura: No pleural effusion. No pneumothorax. Bones: No acute osseous abnormality. Degenerative changes of the thoracic spine. Soft tissues: Normal. Impression: Bilateral diffuse airspace opacifications may represent edema or pneumonia. Signed by: Dr. Medardo Haines M.D. on 06/07/2017 1:49 PM
[2017-06-07] MEDS: METHYLPREDNISOLONE SOD SUCC 40 MG/ML VIAL IV SCH ×2 (14:33→21:16)
--- NOTE | 2017-06-07 16:59 | Consultation ---
DATE OF CONSULTATION: June 07, 2017 PULMONARY CONSULTATION REASON FOR CONSULTATION: Hypoxia and shortness of breath. HPI: Ms. Estrada is a 71-year-old female who presented to the emergency room with the complaint of abdominal pain. She presented yesterday. She had a recent urinary stent placed by a urologist which was removed. She started having fevers and chills. Temperature went up to 102 degrees with rigors. She came to the emergency room and she was septic and hypotensive. Patient was started on IV fluids. This morning she was somewhat hypoxic and she was started on nonrebreather mask. She has been a smoker for 50 years, between 1/2 to 1 pack per day. She denies any chest pain, nausea or vomiting. REVIEW OF SYSTEMS: GENERAL: Was having fever and chills. HEAD: Denies any head trauma. ENT: Denies any earache. CVS: Denies any chest pain. RESPIRATORY: Shortness of breath. GI: Denies any vomiting. She felt nauseated. The rest of the review systems are negative except as in HPI. PAST MEDICAL HISTORY: Hypertension, diabetes, urinary tract infection. Kidney stones. Hyperlipidemia. PAST SURGICAL HISTORY: Tonsillectomy and back surgery. FAMILY AND SOCIAL HISTORY: She smokes between 1/2 to 1 pack per day. She has been a smoker for 50 years. 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 She does not work any more. She is retired. Denies any family history of heart disease. PHYSICAL EXAMINATION: VITALS: Temperature 99.5, pulse of 75, blood pressure 157/76. T-max of 101.5. HEENT: Head atraumatic, normocephalic. Pupils are reactive. SKIN: Warm and dry. NECK: Supple. CHEST: Is clear to auscultation bilaterally. A few crackles and decreased air entry generally bilaterally. HEART: S1 and S2 audible. No murmurs, gallops or rubs. ABDOMEN: Soft, nontender and nondistended. EXTREMITIES: No clubbing, cyanosis or edema. NEUROLOGIC: Awake and alert. LABORATORY DATA: Lactic acid was 13.9 on admission. Sodium 135, potassium 3.2, chloride 106. BUN 8, creatinine 0.6. Enzymes negative. Magnesium was 1.1 on admission. White count 12,000 on admission. Hemoglobin 13.0. Urinalysis showing pyuria. CT of the chest. I have reviewed the images showing poor respiratory effort, atelectasis. also showing possibility of pneumonia in the left upper lobe. ASSESSMENT AND PLAN: Carito Estrada is a 71-year-old female who presented with abdominal discomfort, fever and chills and became hypoxic in the emergency room. CTA of the chest showed no PE, possibility of pneumonia CURRENT PROBLEMS: 1. Acute hypoxic respiratory failure. Patient is a smoker for 50 years. Possibility of COPD exacerbation as well. Also she has been receiving fluid at 150 mL an hour since yesterday and received boluses as well, likely fluid overload causing the problem. I will reduce the fluid and continue the patient on oxygen to keep the O2 sat more than or equal to 92%. I will also start the patient on low-dose Solu-Medrol. She is on antibiotic which will cover for pneumonia as well. 2. Urinary tract infection and recent history of kidney stones and urinary stents. Urology has been consulted. IV antibiotics have been started. Will follow urine culture and blood cultures. 3. History of coronary artery disease. Patient follows up with cardiology. Currently stable and cardiac enzymes are normal. 4. I will also start the patient on nebulizer treatment. 5. I will check BNP and chest x-ray as well. 6. Discussed with the patient's daughter at bedside. Job#: [id number]
[2017-06-07 17:47] VITALS: BP 132/69
[2017-06-07] MEDS: AZITHROMYCIN 500MG/NS 250 ML 250 ML IV SCH (18:26)
[2017-06-07 18:31] VITALS: BP 132/69
[2017-06-07 20:14] VITALS: BP 135/73
[2017-06-07 20:16] VITALS: BP 135/73
[2017-06-08] VITALS (8 sets, daily range): BP systolic 94–144; BP diastolic 67–79
[2017-06-08] MEDS: LEVALBUTEROL HCL SOLN NEBU 1.25 MG/3 ML NEB INH SCH ×4 (01:35→19:46)
[2017-06-08] MEDS: MEROPENEM 1 GM VIAL IV SCH ×3 (04:56→20:00)
[2017-06-08] MEDS: METHYLPREDNISOLONE SOD SUCC 40 MG/ML VIAL IV SCH ×3 (05:05→22:10)
[2017-06-08] MEDS: MORPHINE SULFATE 2 MG/ML SYR IV PRN ×3 (05:05→19:42)
[2017-06-08 06:35] LABS: BASOPHILS % 0.1 % (0.0-1.0); HEMATOCRIT 31.7 % (34.2-44.1); HEMOGLOBIN 10.8 g/dL (12.0-16.0); LYMPHOCYTES # (AUTO) 0.5 (1.0-3.2); LYMPHOCYTES % 5.2 % (18.0-39.1); MEAN CORPUSCULAR HEMOGLOBIN 29.3 pg (28-32); MEAN CORPUSCULAR HGB CONC 34.1 g/dL (31-35); MEAN CORPUSCULAR VOLUME 86.1 fL (81-99); MONOCYTES # (AUTO) 0.6 (0.2-0.8); MONOCYTES % 5.3 % (4.4-11.3); NEUTROPHILS # (AUTO) 9.2 (2.1-6.9); NEUTROPHILS % 88.3 % (38.7-80.0); PLATELET COUNT 152 x10e3/uL (140-360); RED BLOOD COUNT 3.68 x10e6/uL (3.6-5.1); RED CELL DISTRIBUTION WIDTH 14.1 % (11.7-14.4)
[2017-06-08 07:03] LABS: ANION GAP 10.7 mmol/L (8-16); BLOOD UREA NITROGEN 8 mg/dL (7-26); BUN/CREATININE RATIO 14 (6-25); CALCIUM 9.1 mg/dL (8.4-10.2); CARBON DIOXIDE 22 mmol/L (22-29); CHLORIDE 106 mmol/L (98-107); CREATININE, SERUM 0.59 mg/dL (0.57-1.11); EST GLOMERULAR FILTRATION RATE > 60 ML/MIN (60-); GLUCOSE 196 mg/dL (74-118); POTASSIUM 3.7 mmol/L (3.5-5.1); SODIUM 135 mmol/L (136-145)
[2017-06-08] MEDS ORDERED: METOPROLOL TART50 MG PO (07:30)
[2017-06-08] MEDS: ALBUTEROL/IPRATROPIUM 3 ML NEB INH PRN ×2 (08:02→11:49)
[2017-06-08 10:25] LABS: BAND NEUTROPHILS % (MANUAL) 3 %; LYMPHOCYTES % (MANUAL) 6 % (19-48); MONOCYTES % (MANUAL) 3 % (3.4-9.0); MYELOCYTES % (MANUAL) 1 % (0-0); NEUTROPHILS % (MANUAL) 87 % (40-74); RBC MORPHOLOGY COMMENT NORMAL
[2017-06-08 10:26] LABS: ANISOCYTOSIS SLIGHT; HYPOCHROMASIA SLIGHT; PLATELET ESTIMATE SLIGHTLY DECREASED; PLATELET MORPHOLOGY COMMENT FEW LARGE
[2017-06-08] MEDS ORDERED: FUROSEMIDE INJ 10 MG/ML 2 ML VIAL IV ONE (10:30)
[2017-06-08] MEDS: VANCOMYCIN 1GM/NS 250 ML 250 ML IV SCH ×2 (11:35→22:10)
[2017-06-08] MEDS: AZITHROMYCIN 500MG/NS 250 ML 250 ML IV SCH (16:54)
--- NOTE | 2017-06-08 21:30 | Consultation ---
DATE OF CONSULTATION: June 06, 2017 UROLOGY CONSULTATION CONSULTATION CALLED BY: Dr. Desir CHIEF UROLOGICAL COMPLAINT AND REASON FOR CONSULTATION: Fevers. HISTORY OF PRESENT ILLNESS: Ms. Estrada is a 71-year-old female admitted to the hospital with 24-hour history of fevers. She is less than 1 day status post left ureteroscopy, stone and stent extraction by Dr. Tk Fields, my partner I am covering. The patient has had dysuria, left-sided flank pain, fevers, chills, and nausea. Denied vomiting. PAST MEDICAL HISTORY: IBS, hypercholesterolemia. MEDICATIONS: Please see MAR. ALLERGIES: NKDA. SOCIAL HISTORY: No smoking, no drinking. FAMILY HISTORY: Denied urologic stones or malignancies. REVIEW OF SYSTEMS: Noncontributory other than problems mentioned above for 12 organ systems. PHYSICAL EXAMINATION: GENERAL: An elderly female, in no acute distress. VITAL SIGNS: Currently, temperature 100.9, pulse 71, respirations 18, blood pressure 117/88. HEENT: Sclerae are anicteric. NECK: Supple. BACK: Without costovertebral angle tenderness bilaterally. ABDOMEN: Soft. It is nontender, it is nondistended. There is no palpable mass. No palpable hernias. No palpable inguinal lymphadenopathy. : Normal female external genitalia. EXTREMITIES: Without edema. Moves all 4 extremities. PSYCH: Alert. Mood appropriate. SKIN: Intact. Normal color. PERTINENT LABORATORY DATA: CT scan revealing punctate left lower pole stone. A CT of the chest revealing questionable right upper lobe pneumonia. Sodium 129. Lactic acid 13.9. White blood cell count 12,830 with 93% segs. Urinalysis greater than 50 whites, greater than 50 reds. All the labs were normal. IMPRESSION: 1. Urinary tract infection. 2. Microscopic hematuria. 3. Left lower pole stone. 4. Pneumonia. 5. Fevers and chills. 6. Renal colic. 7. Hyponatremia. PLAN: The patient has been begun on broad-spectrum antibiotics. Will adjust to culture-specific antibiotics as data is available. The patient has no hydronephrosis. Will follow along and provide supportive care. Thank you for allowing us to participate in the care of your patient. Will be happy to follow along with you. Job#: [id number]
[2017-06-09] MEDS: LEVALBUTEROL HCL SOLN NEBU 1.25 MG/3 ML NEB INH SCH ×4 (01:15→18:45)
[2017-06-09] MEDS: MORPHINE SULFATE 2 MG/ML SYR IV PRN ×4 (02:00→23:33)
[2017-06-09] MEDS: MEROPENEM 1 GM VIAL IV SCH ×3 (02:33→20:13)
[2017-06-09 04:43] VITALS: BP 129/77
[2017-06-09] MEDS: METHYLPREDNISOLONE SOD SUCC 40 MG/ML VIAL IV SCH ×3 (05:11→22:32)
--- NOTE | 2017-06-09 06:42 | Diagnostic Imaging Report ---
EXAM: CHEST SINGLE (PORTABLE), AP 1 view INDICATION: Pulmonary edema COMPARISON: AP view of the chest June 07, 2017 FINDINGS: LINES/TUBES: Stable left approach PICC LUNGS: Stable bilateral interstitial and alveolar opacities PLEURA: No effusions or pneumothorax. HEART AND MEDIASTINUM: Stable enlargement of the upper mediastinum BONES AND SOFT TISSUES: No acute findings. IMPRESSION: No interval change Signed by: Dr. Laura Coley M.D. on 06/09/2017 6:39 AM
[2017-06-09 06:43] LABS: ANION GAP 10.8 mmol/L (8-16); BLOOD UREA NITROGEN 11 mg/dL (7-26); BUN/CREATININE RATIO 19 (6-25); CALCIUM 9.6 mg/dL (8.4-10.2); CARBON DIOXIDE 25 mmol/L (22-29); CHLORIDE 104 mmol/L (98-107); CREATININE, SERUM 0.57 mg/dL (0.57-1.11); EST GLOMERULAR FILTRATION RATE > 60 ML/MIN (60-); GLUCOSE 163 mg/dL (74-118); POTASSIUM 3.8 mmol/L (3.5-5.1); SODIUM 136 mmol/L (136-145)
[2017-06-09] MEDS ORDERED: BISACODYL 5 MG TAB EC PO PRN (06:45)
[2017-06-09 07:30] VITALS: BP 138/79
[2017-06-09 07:39] LABS: BASOPHILS % 0.1 % (0.0-1.0); HEMATOCRIT 30.7 % (34.2-44.1); HEMOGLOBIN 10.4 g/dL (12.0-16.0); LYMPHOCYTES # (AUTO) 0.8 (1.0-3.2); LYMPHOCYTES % 5.8 % (18.0-39.1); MEAN CORPUSCULAR HEMOGLOBIN 29.5 pg (28-32); MEAN CORPUSCULAR HGB CONC 33.9 g/dL (31-35); MEAN CORPUSCULAR VOLUME 87.2 fL (81-99); MONOCYTES # (AUTO) 0.8 (0.2-0.8); MONOCYTES % 6.3 % (4.4-11.3); NEUTROPHILS # (AUTO) 11.4 (2.1-6.9); PLATELET COUNT 162 x10e3/uL (140-360); RED BLOOD COUNT 3.52 x10e6/uL (3.6-5.1); RED CELL DISTRIBUTION WIDTH 14.3 % (11.7-14.4)
[2017-06-09] MEDS ORDERED: LORAZEPAM INJ 2 MG/ML VIAL IV NR (11:00)
[2017-06-09] MEDS ORDERED: FUROSEMIDE INJ 10 MG/ML 2 ML VIAL IV NR (11:15)
[2017-06-09] MEDS: VANCOMYCIN 1GM/NS 250 ML 250 ML IV SCH ×2 (11:20→22:32)
[2017-06-09 12:40] VITALS: BP 114/98
[2017-06-09 16:20] VITALS: BP 149/84
[2017-06-09] MEDS: AZITHROMYCIN 500MG/NS 250 ML 250 ML IV SCH (16:20)
[2017-06-09] MEDS ORDERED: LORAZEPAM INJ 2 MG/ML VIAL IV ONE (19:15)
[2017-06-09 19:30] VITALS: BP 139/88
[2017-06-09 23:33] VITALS: BP 130/83
[2017-06-10] MEDS: LEVALBUTEROL HCL SOLN NEBU 1.25 MG/3 ML NEB INH SCH ×4 (01:15→19:11)
[2017-06-10] MEDS: MEROPENEM 1 GM VIAL IV SCH ×3 (03:34→20:07)
[2017-06-10] MEDS: METHYLPREDNISOLONE SOD SUCC 40 MG/ML VIAL IV SCH ×3 (05:40→22:07)
[2017-06-10] MEDS: MORPHINE SULFATE 2 MG/ML SYR IV PRN ×2 (05:40→22:08)
[2017-06-10 08:50] VITALS: BP 129/77
[2017-06-10 09:01] VITALS: BP 129/77
[2017-06-10] MEDS: VANCOMYCIN 1GM/NS 250 ML 250 ML IV SCH ×2 (11:46→22:07)
[2017-06-10 12:37] VITALS: BP 94/71
[2017-06-10 16:18] VITALS: BP 139/88
[2017-06-10] MEDS: AZITHROMYCIN 500MG/NS 250 ML 250 ML IV SCH (16:18)
[2017-06-10 21:44] VITALS: BP 146/71
[2017-06-10 21:52] VITALS: BP 146/71
[2017-06-11] VITALS (7 sets, daily range): BP systolic 122–146; BP diastolic 66–78
[2017-06-11] MEDS: LEVALBUTEROL HCL SOLN NEBU 1.25 MG/3 ML NEB INH SCH ×4 (02:01→20:00)
[2017-06-11] MEDS: MORPHINE SULFATE 2 MG/ML SYR IV PRN ×2 (04:04→22:58)
[2017-06-11] MEDS: MEROPENEM 1 GM VIAL IV SCH ×3 (04:18→20:05)
[2017-06-11] MEDS: METHYLPREDNISOLONE SOD SUCC 40 MG/ML VIAL IV SCH ×3 (06:49→18:07)
[2017-06-11 07:46] LABS: BASOPHILS % 0.2 % (0.0-1.0); HEMATOCRIT 30.2 % (34.2-44.1); HEMOGLOBIN 10.4 g/dL (12.0-16.0); LYMPHOCYTES # (AUTO) 1.2 (1.0-3.2); LYMPHOCYTES % 12.1 % (18.0-39.1); MEAN CORPUSCULAR HEMOGLOBIN 29.6 pg (28-32); MEAN CORPUSCULAR HGB CONC 34.4 g/dL (31-35); MONOCYTES # (AUTO) 0.9 (0.2-0.8); MONOCYTES % 8.5 % (4.4-11.3); NEUTROPHILS # (AUTO) 7.8 (2.1-6.9); NEUTROPHILS % 76.8 % (38.7-80.0); PLATELET COUNT 201 x10e3/uL (140-360); RED BLOOD COUNT 3.51 x10e6/uL (3.6-5.1); RED CELL DISTRIBUTION WIDTH 14.6 % (11.7-14.4)
[2017-06-11 08:10] LABS: ANION GAP 9.7 mmol/L (8-16); BLOOD UREA NITROGEN 15 mg/dL (7-26); BUN/CREATININE RATIO 27 (6-25); CALCIUM 9.4 mg/dL (8.4-10.2); CARBON DIOXIDE 29 mmol/L (22-29); CHLORIDE 102 mmol/L (98-107); CREATININE, SERUM 0.56 mg/dL (0.57-1.11); EST GLOMERULAR FILTRATION RATE > 60 ML/MIN (60-); GLUCOSE 130 mg/dL (74-118); POTASSIUM 3.7 mmol/L (3.5-5.1); SODIUM 137 mmol/L (136-145)
[2017-06-11 09:46] LABS: BAND NEUTROPHILS % (MANUAL) 1 %; LYMPHOCYTES % (MANUAL) 11 % (19-48); MONOCYTES % (MANUAL) 10 % (3.4-9.0); NEUTROPHILS % (MANUAL) 78 % (40-74)
[2017-06-11 09:47] LABS: HYPOCHROMASIA SLIGHT; RBC MORPHOLOGY COMMENT NORMAL
[2017-06-11 09:48] LABS: ANISOCYTOSIS SLIGHT; PLATELET ESTIMATE ADEQUATE; PLATELET MORPHOLOGY COMMENT NORMAL
[2017-06-11] MEDS: VANCOMYCIN 1GM/NS 250 ML 250 ML IV SCH ×2 (10:54→22:58)
[2017-06-11] MEDS: AZITHROMYCIN 500MG/NS 250 ML 250 ML IV SCH (16:06)
[2017-06-11] MEDS ORDERED: METHYLPREDNISOLONE SOD SUCC 40 MG/ML VIAL IV SCH (21:00)
[2017-06-12] VITALS (8 sets, daily range): BP systolic 122–137; BP diastolic 66–88
[2017-06-12] MEDS: LEVALBUTEROL HCL SOLN NEBU 1.25 MG/3 ML NEB INH SCH ×4 (01:45→19:30)
[2017-06-12] MEDS: MEROPENEM 1 GM VIAL IV SCH ×3 (03:57→20:13)
[2017-06-12] MEDS: MORPHINE SULFATE 2 MG/ML SYR IV PRN (04:26)
[2017-06-12] MEDS: METHYLPREDNISOLONE SOD SUCC 40 MG/ML VIAL IV SCH ×2 (05:58→17:18)
[2017-06-12] MEDS: VANCOMYCIN 1GM/NS 250 ML 250 ML IV SCH ×2 (11:10→23:35)
[2017-06-12] MEDS: AZITHROMYCIN 500MG/NS 250 ML 250 ML IV SCH (16:10)
== END 2017-06-12 23:30 | DRG 871 ==
LOC: ER 08:59 → ERHOLD 12:50 → IMCU 06-07 16:59
PROVIDERS: ADMIT Family Medicine; ATTEND Family Medicine
PROC: 02HV33Z Insertion of Infusion Device into Superior Vena Cava, Percutaneous Approach (ICD-10-PCS; principal; 2017-06-06)
PROC: B5181ZA Fluoroscopy of Superior Vena Cava using Low Osmolar Contrast, Guidance (ICD-10-PCS; 2017-06-06)
DX: A41.9 Sepsis, unspecified organism (principal); J96.01 Acute respiratory failure with hypoxia; J18.9 Pneumonia, unspecified organism; E87.1 Hypo-osmolality and hyponatremia; J44.1 Chronic obstructive pulmonary disease with (acute) exacerbation; J44.0 Chronic obstructive pulmonary disease with (acute) lower respiratory infection; R65.20 Severe sepsis without septic shock; E78.00 Pure hypercholesterolemia, unspecified; R31.29 Other microscopic hematuria; N20.0 Calculus of kidney; E11.9 Type 2 diabetes mellitus without complications; F17.210 Nicotine dependence, cigarettes, uncomplicated; I25.10 Atherosclerotic heart disease of native coronary artery without angina pectoris
CPT/HCPCS: 36415; 36569; 36600; 51700; 71045; 71260; 74176; 80048; 80053; 80202; 81001; 82550; 82553; 82805; 82948; 83605; 83735; 83880; 84484; 85025; 85610; 85730; 87040; 87070; 87086; 87205; 87400; 93005; 94640; 94660; 94667; 94668; 99285; J0456; J1885; J1940; J2060; J2185; J2270; J2920; J3370; J7030; Q9967

== ENCOUNTER → 2017-11-18 | Outpatient (CLI) | payer MEDICARE ==
--- NOTE | 2017-11-18 15:02 | Diagnostic Imaging Report ---
EXAM: ABDOMEN-1VIEW (KUB) DATE: 11/18/2017 2:41 PM INDICATION: Renal calculus COMPARISON: None FINDINGS: Bowel Gas Pattern: Non-obstructive. Pneumoperitoneum: None. Suspicious Calcifications: At least 2 tiny calcifications overlie the mid to inferior left kidney measuring up to 4 mm. Right kidney largely obscured by stool and bowel gas. Other: Probable calcified fibroids overlie central pelvis. Degenerative changes spine and SI joints. IMPRESSION: Nonobstructing calculi left kidney Signed by: Dr. Darnell Brock MD on 11/18/2017 2:58 PM
== END ==
LOC: RAD 14:35
PROVIDERS: ATTEND Urology
DX: N20.0 Calculus of kidney (principal)
CPT/HCPCS: 74018

== ENCOUNTER → 2017-12-01 | Outpatient (CLI) | payer MEDICARE ==
[~2017-12-01] MED LIST changes: +ASPIR 8181 MG PO; +NORCO 7.5-3251 EACH PO; +TURMERIC PO; +WOMEN'S DAILY1 EACH PO
--- NOTE | 2017-12-02 07:46 | Diagnostic Imaging Report ---
Examination: MRI SPINE CERVICAL WITHOUT CONTRAST History: 72-year-old female with left hand and finger numbness and left forearm shooting pain. Comparison studies: None Technique: Sagittal T1, T2 and IR, axial T2 and axial gradient echo intravenous contrast: None Findings: Alignment: Reversal of normal cervical lordosis centered at C4-C5. No scoliosis. Cervicomedullary junction: No abnormalities. Patent foramen magnum. Soft tissues: No T2 hyperintense inflammatory changes. Spinal cord: Normal in size with increased signal in the doran matter of the cord from C5-C6 through C6-C7. Vertebrae: No fractures, infection or neoplasm. Type I Modic changes of the C4-C7 vertebrae. Degenerative changes: C1-C2: No abnormalities. C2-C3: Small central disc protrusion. No canal or foraminal stenosis. C3-C4: Asymmetric to the right disc osteophyte complex and mild bilateral uncovertebral arthropathy results in mild left neural foraminal narrowing and mild canal stenosis. No right foraminal narrowing. C4-C5: Asymmetric to left disc osteophyte complex and mild right and moderate left uncovertebral arthropathy result in severe left neural foraminal narrowing and mild canal stenosis. C5-C6: Central disc protrusion superimposed on a diffuse disc osteophyte complex, mild ligamentum flavum thickening and bilateral uncovertebral arthropathy result in moderate bilateral neural foraminal narrowing and severe canal stenosis. C6-C7: Diffuse disc osteophyte complex and mild bilateral uncovertebral arthropathy result in mild right and moderate left neural foraminal narrowing and mild canal stenosis. C7-T1: No abnormalities. IMPRESSION: 1. 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 2. Degenerative changes from C2-C3 through C6-C7 with mild canal stenosis at C3-C4, C4-C5 and C6-C7. 3. Severe left foraminal narrowing at C4-C5, moderate bilateral foraminal narrowing at C5-C6 and moderate left foraminal narrowing at C6-C7. 4. Type I Modic changes of the C4-C7 vertebrae. Signed by: Dr. Alvina Perkins M.D. on 12/02/2017 7:43 AM
== END ==
LOC: MRI 12:41
PROVIDERS: ATTEND Psychiatry & Neurology Clinical Neurophysiology
DX: M54.12 Radiculopathy, cervical region (principal)
CPT/HCPCS: 72141

== ENCOUNTER 2017-12-24 10:20 | Observation (INO) | payer MEDICARE ==
[2017-12-23 11:09] LABS: BASOPHILS # (AUTO) 0.1 (0.0-0.1); BASOPHILS % 0.7 % (0.0-1.0); EOSINOPHILS % 0.5 % (0.0-6.0); HEMATOCRIT 39.3 % (34.2-44.1); HEMOGLOBIN 13.4 g/dL (12.0-16.0); LYMPHOCYTES # (AUTO) 1.9 (1.0-3.2); LYMPHOCYTES % 24.9 % (18.0-39.1); MEAN CORPUSCULAR HGB CONC 34.1 g/dL (31-35); MEAN CORPUSCULAR VOLUME 87.9 fL (81-99); MONOCYTES # (AUTO) 0.7 (0.2-0.8); MONOCYTES % 9.7 % (4.4-11.3); NEUTROPHILS # (AUTO) 4.8 (2.1-6.9); NEUTROPHILS % 64.1 % (38.7-80.0); PLATELET COUNT 320 x10e3/uL (140-360); RED BLOOD COUNT 4.47 x10e6/uL (3.6-5.1); RED CELL DISTRIBUTION WIDTH 13.3 % (11.7-14.4)
[2017-12-23 11:23] LABS: INR 0.96; PROTHROMBIN TIME 13.7 seconds (11.9-14.5)
[2017-12-23 11:24] LABS: PARTIAL THROMBOPLASTIN TIME 35.7 seconds (23.8-35.5)
[2017-12-23 11:31] LABS: ANION GAP 13.1 mmol/L (8-16); BLOOD UREA NITROGEN 11 mg/dL (7-26); BUN/CREATININE RATIO 14 (6-25); CALCIUM 10.8 mg/dL (8.4-10.2); CARBON DIOXIDE 26 mmol/L (22-29); CHLORIDE 98 mmol/L (98-107); CREATININE, SERUM 0.79 mg/dL (0.57-1.11); EST GLOMERULAR FILTRATION RATE > 60 ML/MIN (60-); GLUCOSE 94 mg/dL (74-118); POTASSIUM 4.1 mmol/L (3.5-5.1); SODIUM 133 mmol/L (136-145)
--- NOTE | 2017-12-23 11:33 | Diagnostic Imaging Report ---
EXAMINATION: PA and lateral views of the chest. COMPARISON: Single view chest 06/09/2017 CLINICAL HISTORY: Preop for spinal fusion. DISCUSSION: Lungs are well-inflated. Interval resolution of diffuse alveolar opacities described on the comparison study. No new consolidation, pleural effusion, or pneumothorax. Stable cardiomediastinal contour with tortuosity and atherosclerotic calcification of the thoracic aorta. Normal heart size without overt pulmonary edema. No acute osseous abnormality. IMPRESSION: No acute cardiopulmonary abnormalities. Signed by: Dr. Jimy Lainez M.D. on 12/23/2017 11:29 AM
[~2017-12-24] VITALS: Ht 160 cm; Wt 78.0 kg
[~2017-12-24 10:20] MED LIST changes: +ACETAMINOPHEN 1000 MG/100 ML 100 ML IV ONE; +LIDOCAINE HCL (LTA) 4 ML SOLN ONE; -NORCO 7.5-3251 EACH PO; +THROMBIN FOR SOLN 5,000 UNIT VIAL TOP ONE
[2017-12-24] MEDS ORDERED: CEFAZOLIN SOD 2 GM/D5W 50ML 50 ML IV ONE (10:31)
[2017-12-24] MEDS ORDERED: GELATIN SPONGE 12-7MM ONE (12:21)
[2017-12-24] MEDS ORDERED: BUPIVACAINE 0.5%/EPI 30 ML SDV INJ ONE (12:21)
[2017-12-24] MEDS ORDERED: BACITRACIN 50,000 UNIT VIAL ONE (12:21)
[2017-12-24] MEDS ORDERED: HYDROMORPHONE 2MG/ML 2 MG/ML ML IV PRN (13:45)
[2017-12-24] MEDS ORDERED: CEPACOL SORE THROAT LOZENGES PO PRN (13:45)
[2017-12-24] MEDS ORDERED: MORPHINE SULFATE 5 MG/ML VIAL IM PRN (13:45)
[2017-12-24] MEDS ORDERED: ACETAMINOPHEN 325 MG TAB PO PRN (13:45)
[2017-12-24] MEDS ORDERED: MAGNESIUM/ALUMINUM/SIMETHICONE 30 ML UDC PO PRN (13:45)
[2017-12-24] MEDS ORDERED: ONDANSETRON HCL INJ 2 MG/ML VIAL IV PRN (13:45)
[2017-12-24] MEDS ORDERED: CARISOPRODOL 350 MG TAB PO PRN (13:45)
[2017-12-24] MEDS ORDERED: PROMETHAZINE HCL (IM) 25 MG/ML VIAL IM PRN (13:45)
[2017-12-24] MEDS ORDERED: OXYCODONE/ACETAMINOPHEN 5-325 1 EACH TABLET PO PRN (13:45)
[2017-12-24] MEDS ORDERED: FENTANYL CITRATE/PF 100MCG/2 ML INJ ONE ×2 (13:59→19:08)
[2017-12-24] MEDS ORDERED: CEFAZOLIN SOD 1 GM/D5W 50ML 50 ML IV SCH (14:00)
[2017-12-24] MEDS ORDERED: THROMBIN FOR SOLN 5,000 UNIT VIAL TOP ONE (14:30)
--- NOTE | 2017-12-24 14:51 | Operative Report ---
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 PROCEDURES 1. C4-C5 anterior cervical diskectomy and microsurgical osteophyte resection and allograft fusion, 21840. 2. C5-C6 anterior cervical diskectomy and microsurgical osteophyte resection and allograft fusion, 23124. 3. Preparation of tricortical iliac crest allograft, 36169. 4. C4-C5 and C5-C6 anterior cervical plating with Synthes ZPN plate, [id number]. ANESTHESIA: General. 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 The patient was taken to the operating room for 2-level anterior cervical decompression and fusion. PROCEDURE: After induction of general anesthesia, the patient was placed on the operating table in supine position. The right side of the neck was prepped and draped in sterile fashion. The fluoroscopic C-arm was positioned in crosstable lateral orientation. A transverse incision was created on the right side of the neck superimposed on the C5 vertebral body as determined by fluoroscopy. The platysma was divided in line with the incision. A subplatysmal dissection was carried out. An avascular plane of dissection was developed medial to the sternocleidomastoid muscle and was followed medial to the carotid sheath to the anterior border of the cervical spine. The deep cervical fascia was opened. The esophagus was retracted to the left. The attachments of the longus coli muscles to the anterolateral aspects of the vertebral bodies of C4, C5 and C6 were divided. The anterior longitudinal ligament was resected. [place] posts were inserted into C4 and C6. The [place] distractor was used to distract both disk spaces simultaneously. The anterior annuli of disks were incised with a #11 blade. The large anterior osteophytes were resected with [place] rongeurs. The contents of the disks were thoroughly evacuated with angled curets and pituitary rongeurs. The posterior osteophytes were completely drilled with a 2-mm cutting bur on a high-speed drill until they were completely removed. The posterior annulus of the disk, chronically herniated disk material and the posterior longitudinal ligament were resected layer by layer until the dura was fully exposed and decompressed. The medial aspects of the uncinate processes were resected bilaterally to further expose any compressed origins of the corresponding nerve roots. After satisfactory decompression had been achieved, the endplates were prepared for fusion. Two pieces of tricortical iliac crest allograft were cut to size and shapes of the disk spaces and were inserted into the disk spaces under distraction and fluoroscopic guidance. The distraction was released, and the distraction posts were removed. A Synthes CSLP variable-type anterior cervical plate measuring 28 mm was selected and was affixed to the vertebral bodies of C4, C5 and C6 with 3 pairs of screws. The screws at C4 were 16 mm in length and 4.35 mm in diameter. The screws at C5 and C6 were 14 mm in length and 4.35 mm in diameter. All screw holes were drilled and tapped under lateral fluoroscopic guidance. All screws were locked with the appropriate locking screws. An excellent construct was obtained. The wound was copiously irrigated with Bacitracin solution. Meticulous hemostasis was secured. Retractor was removed. The platysma was closed with 3-0 Vicryl sutures. The skin was closed with 4-0 Monocryl sutures in subcuticular fashion. Steri-Strips and dressing were applied. The patient was awakened, extubated and taken to the postanesthesia care unit in stable condition. No intraoperative complications were encountered. Estimated blood loss was 30 mL. Job#: [id number]
[2017-12-24 16:39] VITALS: BP 162/72
[2017-12-24] MEDS ORDERED: ENALAPRIL MALEATE 2.5 MG PO SCH (17:00)
[2017-12-24] MEDS ORDERED: PROPOFOL IV EMULSION 10 MG/ML 20 ML VIAL ONE (17:21)
[2017-12-24] MEDS ORDERED: DEXAMETHASONE SOD PHOS INJ 4 MG/ML VIAL ONE (17:21)
[2017-12-24] MEDS ORDERED: ONDANSETRON HCL INJ 2 MG/ML VIAL ONE (17:21)
[2017-12-24] MEDS ORDERED: GLYCOPYRROLATE INJ 1MG/ 5 ML SYR ONE (17:21)
[2017-12-24] MEDS ORDERED: ROCURONIUM BROMIDE 10 MG/ML 5ML VIAL ONE (17:21)
[2017-12-24] MEDS ORDERED: SEVOFLURANE INHAL SOLN 250 ML PEN BTL ONE (17:21)
[2017-12-24] MEDS ORDERED: NEOSTIGMINE 5 MG/5ML SYR ONE (17:21)
[2017-12-24] MEDS ORDERED: LIDOCAINE HCL 2% LOCAL INJ 5 ML SDV VIAL INJ ONE (17:21)
[2017-12-24] MEDS: ENALAPRIL MALEATE 5 MG TAB PO SCH (17:26)
[2017-12-24] MEDS ORDERED: MIDAZOLAM HCL 2 MG/2 ML VIAL ONE (19:08)
[2017-12-24 20:00] VITALS: BP 139/65
[2017-12-24] MEDS: CEFAZOLIN SOD 1 GM VIAL IV SCH (20:48)
[2017-12-24] MEDS ORDERED: METFORMIN HCL 500 MG TAB PO SCH (21:00)
[2017-12-24] MEDS ORDERED: ZOLPIDEM TARTRATE 5 MG TAB PO PRN (21:00)
[2017-12-24] MEDS ORDERED: METOPROLOL TARTRATE 50 MG TAB PO SCH (21:00)
[2017-12-24] MEDS ORDERED: ATORVASTATIN 40 MG TAB PO SCH (21:00)
[2017-12-24] MEDS ORDERED: ATORVASTATIN 10 MG TAB PO SCH (21:00)
[2017-12-24] MEDS: LACTATED RINGER'S 1,000 ML IV SCH ×2 (21:39→22:03)
[2017-12-25] VITALS: BP 134/77
[2017-12-25] MEDS: CEFAZOLIN SOD 1 GM VIAL IV SCH (03:53)
[2017-12-25 04:00] VITALS: BP 133/63
[2017-12-25] MEDS: LACTATED RINGER'S 1,000 ML IV SCH (06:23)
--- NOTE | 2017-12-25 06:46 | Diagnostic Imaging Report ---
EXAM: C-SPINE 2 VIEWS AP LATERAL, AP, lateral and open mouth odontoid view INDICATION: Surgery COMPARISON: MRI of the cervical spine December 01, 2017 FINDINGS: On the lateral view, the cervical spine is visualized from the skull base to C7. Kyphosis at C3/C4. Anterior cervical spine fusion and intervertebral body disc spacers at C4-C6. Expected recent postsurgical changes of the prevertebral soft tissues. IMPRESSION: Post surgical changes of anterior cervical spine fusion C4-C6. Signed by: Dr. Laura Coley M.D. on 12/25/2017 6:43 AM
[2017-12-25 08:29] VITALS: BP 142/67
[2017-12-25] MEDS ORDERED: NORCO 7.5-3251 EACH PO (08:30)
[2017-12-25 08:39] VITALS: BP 142/67
[2017-12-25] MEDS: ENALAPRIL MALEATE 5 MG TAB PO SCH (08:44)
[2017-12-25 11:58] VITALS: BP 166/72
== END 2017-12-25 11:54 | disposition home or self-care (01) ==
LOC: OR 10:20 → PACU V 13:45 → IMCU 14:58
PROVIDERS: ADMIT Neurological Surgery; ATTEND Neurological Surgery
DX: M50.021 Cervical disc disorder at C4-C5 level with myelopathy (principal); M47.12 Other spondylosis with myelopathy, cervical region; M48.02 Spinal stenosis, cervical region; G95.89 Other specified diseases of spinal cord; Z01.810 Encounter for preprocedural cardiovascular examination; Z01.812 Encounter for preprocedural laboratory examination; Z01.811 Encounter for preprocedural respiratory examination; E11.9 Type 2 diabetes mellitus without complications; E78.5 Hyperlipidemia, unspecified; I10 Essential (primary) hypertension; Z88.5 Allergy status to narcotic agent; Z88.8 Allergy status to other drugs, medicaments and biological substances; G89.29 Other chronic pain; Z72.0 Tobacco use; K58.9 Irritable bowel syndrome, unspecified; Z79.84 Long term (current) use of oral hypoglycemic drugs
CPT/HCPCS: 20931; 22551; 22552; 22845; 36415 ×2; 71046; 72040; 77003; 80048; 82948; 85025; 85610; 85730; 86850; 86900; 88304; 93005; C1768; G0378 ×2; J0131; J0690 ×3; J1100; J1170; J2001; J2250; J2270; J2405; J2704; J3490; J7120; C1713

== ENCOUNTER → 2018-01-18 | Outpatient (CLI) | payer MEDICARE ==
[~2018-01-18] MED LIST changes: -ACETAMINOPHEN 1000 MG/100 ML 100 ML IV ONE; -LIDOCAINE HCL (LTA) 4 ML SOLN ONE; +NORCO 7.5-3251 EACH PO; -THROMBIN FOR SOLN 5,000 UNIT VIAL TOP ONE
--- NOTE | 2018-01-18 11:47 | Diagnostic Imaging Report ---
PROCEDURE: C-SPINE AP AND LAT WITH FLEX AND EXT COMPARISON: 12/25/2017 INDICATIONS: POST OPERATIVE FOR SURGERY ON C-SPINE. PT STATES SHE DID HAVE PAIN IN SHOULDERS. FINDINGS: C1 through C7 are visualized on the lateral view. Soft tissue prominence previously identified has resolved. The patient is status post anterior fusion of C4-C5-C6 with metallic plate and transfixing screws which are intact and in adequate alignment. Mild subluxation of C2 on C3. Disc space narrowing at C6-C7 is present. Flexion and extension views demonstrate no change in alignment. The prevertebral soft tissues are not swollen. CONCLUSION: Status post anterior fusion of C4-C5-C6 with some intact hardware. Intact hardware with adequate alignment. Fernando Smith D.O. Dictated by: Fernando Smith D.O. on 01/18/2018 at 11:57 Electronically approved by: Fernando Smith D.O. on 01/18/2018 at 11:57
== END ==
LOC: RAD 09:52
PROVIDERS: ATTEND Neurological Surgery
DX: M50.20 Other cervical disc displacement, unspecified cervical region (principal); Z98.1 Arthrodesis status
CPT/HCPCS: 72050

== ENCOUNTER → 2018-04-15 | Outpatient (CLI) | payer MEDICARE ==
--- NOTE | 2018-04-15 14:07 | Diagnostic Imaging Report ---
EXAM: ABDOMEN-1VIEW (KUB) DATE: 04/15/2018 11:10 AM INDICATION: Kidney stone COMPARISON: KUB, 11/18/2017 FINDINGS: 2 supine views of the abdomen shows normal distribution of air in the small and large bowel. Again noted are 2 tiny calcifications, each approximately 3 mm, projected at the midportion of the left kidney. The appearance is unchanged from previous exam. Rounded calcifications in the pelvis is unchanged and likely related to a uterine fibroid. Other portions of the kidneys are largely obscured by overlying bowel. Degenerative changes are again seen in the lumbar spine. IMPRESSION: 1. Unchanged small calcifications projected on the central portion of the left kidney. These may represent small intrarenal calculi. 2. No bowel dilatation or evidence for bowel obstruction. Signed by: Dr. Randell Hoskins M.D. on 04/15/2018 2:03 PM
== END ==
LOC: RAD 10:49
PROVIDERS: ATTEND Urology
DX: N20.0 Calculus of kidney (principal)
CPT/HCPCS: 74018

== ENCOUNTER → 2018-07-19 | Outpatient (CLI) | payer MEDICARE ==
--- NOTE | 2018-07-19 11:30 | Diagnostic Imaging Report ---
EXAM: Cervical spine radiographs-4 views INDICATION: Cervical disc herniation. COMPARISON: Cervical spine radiographs 12/25/2017 and 01/18/2018. FINDINGS: On the lateral view, the cervical spine is visualized from the skull base to T1. Kyphosis at C3/C4 is unchanged. There is minimal anterolisthesis of C2 on C3, C3 on C4, and C7 on T1. There is resolution of anterolisthesis of C2 on C3 on extension view. There is no other change in alignment on flexion and extension views. Anterior cervical spine fusion and intervertebral body disc spacers at C4-C6. Hardware appears intact. No evidence of acute fracture. Moderate multilevel degenerative disc and facet degenerative changes. IMPRESSION: Status post anterior cervical spine fusion from C4-C6 with intact hardware. Minimal anterolisthesis of C2 on C3 on neutral and flexion views, which resolves on extension view. Signed by: Dr. Juliana Cifuentes MD on 07/19/2018 11:27 AM
== END ==
LOC: RAD 10:19
PROVIDERS: ATTEND Neurological Surgery
DX: M50.20 Other cervical disc displacement, unspecified cervical region (principal); Z98.1 Arthrodesis status
CPT/HCPCS: 72050

== ENCOUNTER → 2018-08-23 | Day surgery (SDC) | payer MEDICARE ==
[2018-08-18 11:19] LABS: BASOPHILS # (AUTO) 0.1 (0.0-0.1); BASOPHILS % 0.6 % (0.0-1.0); EOSINOPHILS # (AUTO) 0.1 (0.0-0.4); EOSINOPHILS % 0.8 % (0.0-6.0); HEMATOCRIT 39.4 % (34.2-44.1); HEMOGLOBIN 13.1 g/dL (12.0-16.0); LYMPHOCYTES # (AUTO) 1.7 (1.0-3.2); LYMPHOCYTES % 20.8 % (18.0-39.1); MEAN CORPUSCULAR HEMOGLOBIN 29.8 pg (28-32); MEAN CORPUSCULAR HGB CONC 33.2 g/dL (31-35); MEAN CORPUSCULAR VOLUME 89.5 fL (81-99); MONOCYTES # (AUTO) 0.7 (0.2-0.8); MONOCYTES % 9.1 % (4.4-11.3); NEUTROPHILS # (AUTO) 5.5 (2.1-6.9); NEUTROPHILS % 68.4 % (38.7-80.0); PLATELET COUNT 291 x10e3/uL (140-360); RED CELL DISTRIBUTION WIDTH 12.8 % (11.7-14.4)
[~2018-08-23] MED LIST changes: +FENTANYL CITRATE/PF 100MCG/2 ML INJ ONE; +HYOSCYAMINE 0.125 MG TAB ONE; +MIDAZOLAM HCL 2 MG/2 ML VIAL ONE; +PROPOFOL IV EMULSION 10 MG/ML 20 ML VIAL ONE
[2018-08-23 16:00] VITALS: BP 125/56
--- NOTE | 2018-08-23 16:45 | Operative Report ---
DATE OF PROCEDURE: 08/23/2018 SURGEON: Crow Avina MD PROCEDURES: Colonoscopy with polypectomy and biopsies. INDICATIONS FOR COLONOSCOPY: Surveillance colonoscopy, personal history of colon polyps. MEDICATIONS: The patient was done under MAC. Please see anesthesiologist's note. PROCEDURE IN DETAIL: With the patient in left lateral decubitus position, flexible fiberoptic Olympus colonoscope was inserted into the rectum with ease and advanced all the way to the cecum. The scope was then withdrawn slowly and mucosa overlying the cecum, ascending colon grossly appeared to be within normal limits; as well as the mucosa overlying the transverse and descending other than for scattered diverticular disease. The mucosa overlying the sigmoid colon revealed some patchy intense erythema and low-grade to moderate edema, biopsies were obtained. Two polyps were hot biopsied from the sigmoid colon. The rectum appeared to be within normal limits. The scope was then retroflexed into the distal rectum and small internal hemorrhoids were noted, none of which was actively bleeding. The scope was then straightened out, it was subsequently withdrawn. The patient tolerated the procedure well. IMPRESSION: 1. Diverticulosis. 2. Rule out spontaneous coronary artery disease. 3. Sigmoid colon polyps x2, hot biopsied. 4. Internal hemorrhoids, none actively bleeding. PLAN: Follow up histology. Initiate high-fiber, low-fat diet. Initiate high-fiber supplement. The patient might benefit from a followup colonoscopy in 5 years. Crow Avina MD [facility] [place]/[facility] /[id number] cc: Marv Hager MD
== END | disposition home or self-care (01) ==
LOC: OR 12:25
PROVIDERS: ATTEND Internal Medicine Gastroenterology
DX: Z12.11 Encounter for screening for malignant neoplasm of colon (principal); K57.30 Diverticulosis of large intestine without perforation or abscess without bleeding; K63.5 Polyp of colon; K64.8 Other hemorrhoids; R14.0 Abdominal distension (gaseous); K58.9 Irritable bowel syndrome, unspecified; I10 Essential (primary) hypertension; E11.9 Type 2 diabetes mellitus without complications; E78.00 Pure hypercholesterolemia, unspecified; F17.210 Nicotine dependence, cigarettes, uncomplicated; Z87.442 Personal history of urinary calculi; Z79.84 Long term (current) use of oral hypoglycemic drugs; Z88.5 Allergy status to narcotic agent; Z88.8 Allergy status to other drugs, medicaments and biological substances; Z83.3 Family history of diabetes mellitus; Z80.0 Family history of malignant neoplasm of digestive organs; Z84.89 Family history of other specified conditions; Z86.010 Personal history of colon polyps; Z68.27 Body mass index [BMI] 27.0-27.9, adult; Z01.812 Encounter for preprocedural laboratory examination
CPT/HCPCS: 36415 ×2; 45384; 82948; 85025; 88305; J2250; J2704; J3010; 45378

== ENCOUNTER → 2018-09-15 | Outpatient (CLI) | payer MEDICARE ==
[~2018-09-15] MED LIST changes: -FENTANYL CITRATE/PF 100MCG/2 ML INJ ONE; -HYOSCYAMINE 0.125 MG TAB ONE; -MIDAZOLAM HCL 2 MG/2 ML VIAL ONE; -PROPOFOL IV EMULSION 10 MG/ML 20 ML VIAL ONE
--- NOTE | 2018-09-15 14:41 | Diagnostic Imaging Report ---
Exam: KUB - 2 views Clinical History: Renal calculi Comparison: CT abdomen pelvis of 06/14/2018 Findings: 2 calcific densities overlying the mid pole of the left renal silhouette measuring 3 mm and 4 mm likely correspond with renal calculi seen on the CT of 06/14/2018. No radiographically apparent renal calculi on the right. Not certain bowel gas pattern. No free air. Degenerative changes of the lower lumbar spine. The remaining osseous structures appear unremarkable. Impression: 3 and 4 mm left renal calculi as above. No radiographically apparent right renal calculi. Signed by: Pam Stanton MD on 09/15/2018 2:37 PM
== END ==
LOC: RAD 14:01
PROVIDERS: ATTEND Urology
DX: N20.0 Calculus of kidney (principal)
CPT/HCPCS: 74018

== ENCOUNTER → 2018-11-16 | Day surgery (SDC) | payer MEDICARE ==
[2018-11-11 13:34] LABS: BASOPHILS # (AUTO) 0.1 (0.0-0.1); BASOPHILS % 0.8 % (0.0-1.0); EOSINOPHILS # (AUTO) 0.1 (0.0-0.4); EOSINOPHILS % 0.8 % (0.0-6.0); HEMATOCRIT 40.2 % (34.2-44.1); HEMOGLOBIN 13.8 g/dL (12.0-16.0); LYMPHOCYTES # (AUTO) 1.8 (1.0-3.2); MEAN CORPUSCULAR HEMOGLOBIN 30.1 pg (28-32); MEAN CORPUSCULAR HGB CONC 34.3 g/dL (31-35); MEAN CORPUSCULAR VOLUME 87.8 fL (81-99); MONOCYTES # (AUTO) 0.8 (0.2-0.8); NEUTROPHILS # (AUTO) 4.5 (2.1-6.9); NEUTROPHILS % 62.1 % (38.7-80.0); PLATELET COUNT 308 x10e3/uL (140-360); RED BLOOD COUNT 4.58 x10e6/uL (3.6-5.1); RED CELL DISTRIBUTION WIDTH 13.2 % (11.7-14.4)
--- NOTE | 2018-11-11 13:53 | Diagnostic Imaging Report ---
Abdomen, 1 view. History: Kidney stone. Comparison: 09/15/2018. Findings: Air is scattered throughout nondilated small and large bowel. 3 to 4 mm calcific densities are again seen projected over the left kidney. There are no masses. Advanced degenerative changes are noted throughout the lumbar spine. IMPRESSION: Non-specific bowel gas pattern. Small calcifications projected over the left kidney without change. Signed by: William Coker on 11/11/2018 1:49 PM
[2018-11-11 13:54] LABS: ANION GAP 10.7 mmol/L (8-16); BLOOD UREA NITROGEN 12 mg/dL (7-26); BUN/CREATININE RATIO 16 (6-25); CALCIUM 10.9 mg/dL (8.4-10.2); CARBON DIOXIDE 28 mmol/L (22-29); CHLORIDE 99 mmol/L (98-107); CREATININE, SERUM 0.74 mg/dL (0.57-1.11); EST GLOMERULAR FILTRATION RATE > 60 ML/MIN (60-); GLUCOSE 80 mg/dL (74-118); POTASSIUM 3.7 mmol/L (3.5-5.1); SODIUM 134 mmol/L (136-145)
[~2018-11-16] MED LIST changes: +B&O 60MG R/S 60 MG SUPP PR ONE; +CEFTRIAXONE SOD 1 GM/NS 50 ML 50 ML IV ONE; +DEXAMETHASONE SOD PHOS INJ 4 MG/ML VIAL ONE; +EPHEDRINE SULFATE INJ 50 MG/10 ML SYR ONE; +FENTANYL CITRATE/PF 100MCG/2 ML INJ ONE; +GLYCOPYRROLATE INJ 1MG/ 5 ML SYR ONE; +IOPAMIDOL 300MG/ML 50ML INFUS..BTL IV ONE; +LIDOCAINE HCL 2% LOCAL INJ 5 ML SDV VIAL INJ ONE; +MIDAZOLAM HCL 2 MG/2 ML VIAL ONE; +ONDANSETRON HCL INJ 2MG/ML 2ML 2 MG/ML VIAL ONE; +PROPOFOL IV EMULSION 10 MG/ML 20 ML VIAL ONE; +SEVOFLURANE INHAL SOLN 250 ML PEN BTL ONE
[2018-11-16 08:45] VITALS: BP 105/58
--- NOTE | 2019-01-24 00:03 | Operative Report ---
DATE OF PROCEDURE: 11/16/2018 SURGEON: Tk Fields MD PREOPERATIVE DIAGNOSES: 1. Nephrolithiasis. 2. Urinary tract infection. 3. Hematuria. POSTOPERATIVE DIAGNOSES: 1. Nephrolithiasis. 2. Urinary tract infection. 3. Hematuria. 4. Grade 3 cystocele. 5. Grade 1 rectocele. 6. Atrophic (senile) vaginitis. OPERATIONS PERFORMED: Note these were all staged procedures as part of multi-staged and multi-step process in managing the patient's urolithiasis. 1. Left-sided extracorporeal shockwave lithotripsy (separate procedure performed for the nephrolithiasis). 2. Cystourethroscopy with bilateral ureteral catheterization and retrograde ureteropyelography (separate procedure performed for the hematuria and urinary tract infections). 3. Interpretation of retrograde ureteropyelography. 4. Pelvic examination under anesthesia. ANESTHESIA: General. COMPLICATIONS: None. CLINICAL SUMMARY: Rosa Isela Estrada is a 73-year-old woman with the above preoperative diagnoses. She is brought for the above procedure. She is aware of the risks of bleeding, infection, injury to adjacent structures, need for additional procedures and elected to proceed. OPERATIVE PROCEDURE IN DETAIL: Informed consent was verified. Rosa Isela Estrada was properly identified, taken to the operating room, placed on the lithotripsy table in supine position. Anesthesia was uneventfully begun. The patient's left nephrolithiasis was localized with biplanar fluoroscopy. A total of 3000 shocks were delivered with excellent fragmentation. The patient was then carefully and gently repositioned in dorsal lithotomy position with all pressure points well padded. Her genitalia were prepared and draped in usual sterile fashion. The cystoscope sheath with obturator in place was atraumatically inserted into the patient's urethra and bladder was drained. Panendoscopy of the bladder revealed no suspicion mucosal lesions, no tumors, no stones, and no diverticula. Minimal erythema was noted. An 8-[place] catheter was used to cannulate each ureter and retrograde ureteral pyelograms were performed. Interpretation of retrograde ureteropyelography: Contrast was instilled in retrograde fashion bilaterally. The two stones we lithotripsied were present in the upper part of the lower pole complex of calices. There were two stones. In the location of two stones that we lithotripsied, there were filling defects corresponding to stone debris as well as blood clots. There was no hydronephrosis. Unobstructed drainage was observed fluoroscopically. The patient's bladder was drained. Cystoscope was withdrawn. Pelvic examination under anesthesia revealed grade 3 cystocele, grade 1 rectocele. There was atrophic vaginitis. No abnormal palpable pelvic masses could be appreciated. There were no obvious mucosal lesions. The patient was then uneventfully reversed from anesthesia and taken to recovery room in stable condition. There were no complications to the procedure. She tolerated the procedure well. Plans will be to follow the patient up in several weeks in the office and of course we will proceed with eventual metabolic stone workup and ongoing urological followup. Tk Fields MD [place]/[facility] /[id number] cc: Marv Hager MD
== END | disposition home or self-care (01) ==
LOC: OR 05:00
PROVIDERS: ATTEND Urology
DX: N20.0 Calculus of kidney (principal); N39.0 Urinary tract infection, site not specified; N81.89 Other female genital prolapse; N95.2 Postmenopausal atrophic vaginitis; I10 Essential (primary) hypertension; E11.9 Type 2 diabetes mellitus without complications; J44.9 Chronic obstructive pulmonary disease, unspecified; Z88.6 Allergy status to analgesic agent; Z88.8 Allergy status to other drugs, medicaments and biological substances; Z01.810 Encounter for preprocedural cardiovascular examination; Z01.812 Encounter for preprocedural laboratory examination; Z01.818 Encounter for other preprocedural examination; Z79.82 Long term (current) use of aspirin; Z79.84 Long term (current) use of oral hypoglycemic drugs; Z68.30 Body mass index [BMI] 30.0-30.9, adult
CPT/HCPCS: 36415 ×2; 50590; 74018; 80048; 82948; 85025; 93005; C1758; J0696; J1100; J2001; J2250; J2405; J2704; J3010; J3490; Q9967

== ENCOUNTER → 2019-01-10 | Outpatient (CLI) | payer MEDICARE ==
[~2019-01-10] MED LIST changes: -B&O 60MG R/S 60 MG SUPP PR ONE; -CEFTRIAXONE SOD 1 GM/NS 50 ML 50 ML IV ONE; -DEXAMETHASONE SOD PHOS INJ 4 MG/ML VIAL ONE; -EPHEDRINE SULFATE INJ 50 MG/10 ML SYR ONE; -FENTANYL CITRATE/PF 100MCG/2 ML INJ ONE; -GLYCOPYRROLATE INJ 1MG/ 5 ML SYR ONE; -IOPAMIDOL 300MG/ML 50ML INFUS..BTL IV ONE; -LIDOCAINE HCL 2% LOCAL INJ 5 ML SDV VIAL INJ ONE; -MIDAZOLAM HCL 2 MG/2 ML VIAL ONE; -ONDANSETRON HCL INJ 2MG/ML 2ML 2 MG/ML VIAL ONE; -PROPOFOL IV EMULSION 10 MG/ML 20 ML VIAL ONE; -SEVOFLURANE INHAL SOLN 250 ML PEN BTL ONE
--- NOTE | 2019-01-10 11:09 | Diagnostic Imaging Report ---
Abdomen, one view Clinical indication: Calculus of kidney Comparison: 11/11/2018, 09/15/2018, CT of the abdomen and pelvis dated 06/14/2018 Impression: 3 to 4 mm linear calcifications again project over the mid pole of the left kidney. These are unchanged from prior examination and possibly vascular calcifications. No new calcifications are present. The bowel gas pattern is nonobstructed. Signed by: Orlando Valentino MD on 01/10/2019 11:06 AM
== END ==
LOC: RAD 10:30
PROVIDERS: ATTEND Urology
DX: N20.0 Calculus of kidney (principal)
CPT/HCPCS: 74018

== ENCOUNTER → 2019-07-06 | Outpatient (CLI) | payer MEDICARE ==
--- NOTE | 2019-07-07 00:19 | Diagnostic Imaging Report ---
EXAM: Abdomen Radiograph 1 View(s) INDICATION: Calculus of kidney COMPARISON: Abdominal radiograph 01/10/2019, abdominal CT 06/14/2018 FINDINGS: No abnormalities in the lower chest. No lines or tubes. Normal volume of stool in the colon. No dilated loops of small bowel. A few 3-4 mm calcifications project over the left renal shadow. No abnormal soft tissue masses. No pneumoperitoneum. No acute osseous abnormality. Degenerative changes in the lumbar spine and pelvis. Calcified uterine fibroids. IMPRESSION: Suspect a few 3-4 mm left renal calculi although these may represent vascular calcifications. Signed by: Raj Carson DO on 07/07/2019 12:15 AM
== END ==
LOC: RAD 15:34
PROVIDERS: ATTEND Urology
DX: N20.0 Calculus of kidney (principal)
CPT/HCPCS: 74018

== ENCOUNTER → 2019-07-25 | Outpatient (CLI) | payer MEDICARE ==
--- NOTE | 2019-07-25 15:14 | Diagnostic Imaging Report ---
CT of the abdomen and pelvis, without contrast. History: Calculus of kidney. Comparison: Abdominal radiograph from 07/06/2019, CT chest, abdomen, pelvis from 06/14/2018. Technique: Multidetector CT scanning of the abdomen and pelvis was performed from the level of the lung bases to the inferior pubic without the use of contrast material. Coronal and sagittal multiplanar reformations were obtained. RADIATION DOSE: Total DLP: 376.54 mGy*cm Dose modulation, iterative reconstruction, and/or weight based adjustment of the mA/kV was utilized to reduce the radiation dose to as low as reasonably achievable. FINDINGS: Mild bibasilar atelectasis/scarring noted, unchanged from the prior examination. The imaged portion of the heart demonstrates no significant abnormalities. The liver is normal in size and attenuation on this noncontrast enhanced examination. The gallbladder appears contracted but otherwise unremarkable. There is no biliary ductal dilatation. The stomach, spleen, pancreas, and bilateral adrenal glands demonstrate an unremarkable noncontrast appearance. The kidneys are normal in size and location. Mild vascular calcifications are noted on the left. There is no evidence for nephrolithiasis or hydronephrosis. No ureteral stone or dilatation is appreciated. The partially distended urinary bladder demonstrates no significant abnormalities. Dystrophic calcifications are noted within the uterus likely representing degenerated uterine fibroids. No abnormal adnexal masses are identified. The abdominal aorta is normal course and caliber with atherosclerotic calcifications within its course and branch vessels. The IVC is normal in caliber. Please note evaluation the bowel is limited without the use of enteric contrast material. Incidentally noted is a diverticulum arising off the gastric fundus. An additional diverticulum is noted arising off the the third portion of the duodenum. Findings are unchanged from the prior examination. The visualized loops of small and large bowel otherwise demonstrate no evidence of obstruction or inflammation. The appendix is visualized and appears unremarkable. Extensive diverticula are noted within the sigmoid colon and descending colon without evidence for acute diverticulitis. No abnormally enlarged lymph nodes are identified within the abdomen or pelvis. 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 The osseous structures demonstrate stable degenerative changes without evidence for acute fracture or destructive process. The extraperitoneal soft tissues are unremarkable. IMPRESSION: No evidence for nephrolithiasis or obstructive uropathy. Diverticulosis coli without evidence for acute diverticulitis. Additional stable findings as above. Signed by: Dr. Arturo Kim MD on 07/25/2019 3:10 PM
== END ==
LOC: CT 13:50
PROVIDERS: ATTEND Urology
DX: N20.0 Calculus of kidney (principal)
CPT/HCPCS: 74176

== ENCOUNTER → 2020-01-11 | Outpatient (CLI) | payer MEDICARE ==
--- NOTE | 2020-01-11 14:35 | Diagnostic Imaging Report ---
Exam: KUB - 1 views Indication: Renal calculi Comparison: CT abdomen and pelvis 07/25/2019, KUB 07/06/2019 Findings: No radiographically apparent urinary calculi. Calcifications in the left upper quadrant correspond with vascular calcification seen on prior CT of 07/25/2019. Nonobstructive bowel gas pattern. No free air. No acute osseous injury. Degenerative changes of the visualized spine. Pelvic calcifications correspond with uterine fibroid and pelvic phleboliths on prior CT. Impression: No radiographically apparent urinary calculi. Signed by: Pam Stanton MD on 01/11/2020 2:32 PM
== END ==
LOC: RAD 14:03
PROVIDERS: ATTEND Urology
DX: N20.0 Calculus of kidney (principal)
CPT/HCPCS: 74018

== ENCOUNTER → 2020-07-11 | Outpatient (CLI) | payer MEDICARE | LOC: RAD 14:00 | PROVIDERS: ATTEND Urology | DX: N20.0 Calculus of kidney (principal) | CPT/HCPCS: 74018 ==

== ENCOUNTER → 2020-07-27 | Outpatient (CLI) | payer MEDICARE | LOC: US 13:07 | PROVIDERS: ATTEND Family Medicine | DX: R94.6 Abnormal results of thyroid function studies (principal) | CPT/HCPCS: 76536 ==

== ENCOUNTER → 2021-02-12 | Outpatient (CLI) | payer MEDICARE | LOC: DX 08:01 | PROVIDERS: ATTEND Internal Medicine | DX: E21.0 Primary hyperparathyroidism (principal); Z78.0 Asymptomatic menopausal state | CPT/HCPCS: 77080; 78071; A9512 ==

== ENCOUNTER → 2021-02-13 | Outpatient (CLI) | payer MEDICARE | LOC: RAD 14:49 | PROVIDERS: ATTEND Urology | DX: N20.0 Calculus of kidney (principal) | CPT/HCPCS: 74018 ==

== ENCOUNTER → 2021-03-27 | Outpatient (CLI) | payer MEDICARE | LOC: CT 13:09 | PROVIDERS: ATTEND Urology | DX: N20.0 Calculus of kidney (principal) | CPT/HCPCS: 74176 ==

== ENCOUNTER → 2021-09-02 | Outpatient (CLI) | payer MEDICARE | LOC: RAD 10:24 | PROVIDERS: ATTEND Urology | DX: N20.0 Calculus of kidney (principal) | CPT/HCPCS: 74018 ==

== ENCOUNTER → 2021-09-23 | Day surgery (SDC) | payer MEDICARE ==
[2021-09-19 14:07] LABS: BASOPHILS % 0.6 % (0.0-1.0); EOSINOPHILS # (AUTO) 0.1 (0.0-0.4); EOSINOPHILS % 0.8 % (0.0-6.0); HEMOGLOBIN 13.3 g/dL (12.0-16.0); LYMPHOCYTES # (AUTO) 1.9 (1.0-3.2); LYMPHOCYTES % 26.7 % (18.0-39.1); MEAN CORPUSCULAR HEMOGLOBIN 29.6 pg (28-32); MEAN CORPUSCULAR HGB CONC 33.3 g/dL (31-35); MEAN CORPUSCULAR VOLUME 89.1 fL (81-99); MONOCYTES # (AUTO) 0.8 (0.2-0.8); NEUTROPHILS # (AUTO) 4.4 (2.1-6.9); NEUTROPHILS % 60.6 % (38.7-80.0); PLATELET COUNT 304 x10e3/uL (140-360); RED BLOOD COUNT 4.49 x10e6/uL (3.6-5.1); RED CELL DISTRIBUTION WIDTH 13.4 % (11.7-14.4)
[2021-09-19 14:25] LABS: ANION GAP 10.1 mmol/L (8-16); BLOOD UREA NITROGEN 8 mg/dL (7-26); BUN/CREATININE RATIO 11 (6-25); CALCIUM 9.9 mg/dL (8.4-10.2); CARBON DIOXIDE 30 mmol/L (22-29); CHLORIDE 100 mmol/L (98-107); CREATININE, SERUM 0.72 mg/dL (0.57-1.11); GLUCOSE 81 mg/dL (74-118); POTASSIUM 4.1 mmol/L (3.5-5.1); SODIUM 136 mmol/L (136-145)
[~2021-09-23] MED LIST changes: +FENTANYL CITRATE/PF 100MCG/2 ML INJ ONE; +HYDROCHLOROTHIA25 MG PO; +HYOSCYAMINE SULFATE 0.5 MG/ML INJ ONE; +MIDAZOLAM HCL 2 MG/2 ML VIAL ONE; +PROPOFOL IV EMULSION 10 MG/ML 20 ML VIAL ONE; +ZETIA10 MG PO
[2021-09-23 14:20] VITALS: BP 132/71
[2021-09-23 14:43] LABS: CLARITY,URINE SL CLOUDY (CLEAR); COLOR,URINE YELLOW (YELLOW); LEUKOCYTE ESTERASE ,URINE NEGATIVE (NEGATIVE); NITRITE,URINE NEGATIVE (NEGATIVE)
[2021-09-23 14:44] LABS: KETONES,URINE TRACE (NEGATIVE); PROTEIN,URINE DIPSTICK 2+ (NEGATIVE); URINE UROBILINOGEN 0.2 mg/dL (0.2 - 1)
[2021-09-23 15:12] LABS: BACTERIA,URINE MODERATE /HPF; EPITHELIAL CELLS,URINE MODERATE /LPF
== END | disposition home or self-care (01) ==
LOC: OR 10:03
PROVIDERS: ATTEND Internal Medicine Gastroenterology
DX: K52.9 Noninfective gastroenteritis and colitis, unspecified (principal); K63.5 Polyp of colon; K59.00 Constipation, unspecified; K57.30 Diverticulosis of large intestine without perforation or abscess without bleeding; K64.8 Other hemorrhoids; Z71.3 Dietary counseling and surveillance; E11.9 Type 2 diabetes mellitus without complications; I10 Essential (primary) hypertension; Z71.89 Other specified counseling; E78.00 Pure hypercholesterolemia, unspecified; F17.210 Nicotine dependence, cigarettes, uncomplicated; Z01.810 Encounter for preprocedural cardiovascular examination; Z01.812 Encounter for preprocedural laboratory examination; Z20.822 Contact with and (suspected) exposure to COVID-19; Z79.84 Long term (current) use of oral hypoglycemic drugs; Z79.82 Long term (current) use of aspirin; Z79.899 Other long term (current) drug therapy; Z68.28 Body mass index [BMI] 28.0-28.9, adult; Z80.0 Family history of malignant neoplasm of digestive organs; Z83.79 Family history of other diseases of the digestive system
CPT/HCPCS: 0223U; 36415 ×2; 45380; 80048; 81001; 82948; 85025; 88305; 93005; J1980; J2250; J2704; J3010; 45378; 88304

== ENCOUNTER → 2021-11-28 | Outpatient (CLI) | payer MEDICARE ==
[~2021-11-28] MED LIST changes: -FENTANYL CITRATE/PF 100MCG/2 ML INJ ONE; -HYOSCYAMINE SULFATE 0.5 MG/ML INJ ONE; -MIDAZOLAM HCL 2 MG/2 ML VIAL ONE; -PROPOFOL IV EMULSION 10 MG/ML 20 ML VIAL ONE
== END ==
LOC: RAD 14:32
PROVIDERS: ATTEND Urology
DX: N20.0 Calculus of kidney (principal)
CPT/HCPCS: 74018

== ENCOUNTER → 2022-05-01 | Outpatient (CLI) | payer MEDICARE | LOC: RAD 15:01 | PROVIDERS: ATTEND Urology | DX: N02.0 Recurrent and persistent hematuria with minor glomerular abnormality (principal) | CPT/HCPCS: 74018 ==

== ENCOUNTER → 2022-05-23 | Outpatient (CLI) | payer MEDICARE | LOC: DX 13:15 | PROVIDERS: ATTEND Internal Medicine | DX: Z13.820 Encounter for screening for osteoporosis (principal); E21.3 Hyperparathyroidism, unspecified | CPT/HCPCS: 77080 ==

== ENCOUNTER 2022-08-01 13:30 | Emergency (ER) | payer MEDICARE ==
[~2022-08-01] VITALS: Ht 160 cm; Wt 72.6 kg
[~2022-08-01 13:30] MED LIST changes: +ATORVASTATIN CA10 MG PO; +MULTI-VITAMIN1 EACH PO
[2022-08-01 14:27] VITALS: O2SAT 99
== END 2022-08-01 16:28 | disposition home or self-care (01) ==
LOC: ER 13:42
DX: S00.83XA Contusion of other part of head, initial encounter (principal); S13.4XXA Sprain of ligaments of cervical spine, initial encounter; W11.XXXA Fall on and from ladder, initial encounter; Y92.89 Other specified places as the place of occurrence of the external cause; I10 Essential (primary) hypertension; E78.00 Pure hypercholesterolemia, unspecified; M54.9 Dorsalgia, unspecified; G89.29 Other chronic pain; Z87.19 Personal history of other diseases of the digestive system
CPT/HCPCS: 70450; 72125; 99283

== ENCOUNTER → 2022-12-18 | Outpatient (REF) | payer MEDICARE | LOC: RAD 14:58 | PROVIDERS: ATTEND Urology | DX: N02.0 Recurrent and persistent hematuria with minor glomerular abnormality (principal) | CPT/HCPCS: 74018 ==

== ENCOUNTER → 2023-11-09 | Outpatient (REF) | payer MEDICARE | LOC: US 08:48 | PROVIDERS: ATTEND Nurse Practitioner Primary Care | DX: F17.200 Nicotine dependence, unspecified, uncomplicated (principal) | CPT/HCPCS: 76770 ==

== ENCOUNTER → 2024-05-05 | Outpatient (REF) | payer MEDICARE | LOC: US 12:48 | PROVIDERS: ATTEND Urology | DX: R31.0 Gross hematuria (principal) | CPT/HCPCS: 74018; 76770; 76857 ==

== ENCOUNTER → 2024-05-05 | Outpatient (REF) | payer MEDICARE | LOC: CT 12:43 | PROVIDERS: ATTEND Nurse Practitioner Primary Care | DX: J43.9 Emphysema, unspecified (principal); F17.200 Nicotine dependence, unspecified, uncomplicated | CPT/HCPCS: 71250 ==

== ENCOUNTER → 2024-05-19 | Outpatient (REF) | payer MEDICARE ==
[~2024-05-19] MED LIST changes: +IOPAMIDOL 370 MG/ML 100 ML INFUS..BTL INJ ONE
[2024-05-19 13:04] LABS: CREATININE, SERUM 0.67 mg/dL (0.57-1.11)
== END ==
LOC: CT 12:26
PROVIDERS: ATTEND Urology
DX: N28.1 Cyst of kidney, acquired (principal)
CPT/HCPCS: 36415; 74178; 82565; 84520; Q9967

== ENCOUNTER 2024-08-15 11:24 | Inpatient (IN) | payer MEDICARE ==
[2024-08-10 11:02] LABS: BASOPHILS % 0.5 % (0.0-1.0); EOSINOPHILS % 0.4 % (0.0-6.0); LYMPHOCYTES % 17.5 % (18.0-39.1); MONOCYTES % 7.6 % (4.4-11.3); NEUTROPHILS % 73.7 % (38.7-80.0); RED CELL DISTRIBUTION WIDTH 13.6 % (11.7-14.4)
[2024-08-10 11:27] LABS: EST GLOMERULAR FILTRATION RATE 84.0 ML/MIN (>=60)
[2024-08-15] VITALS (20 sets, daily range): BP systolic 103–177; BP diastolic 52–87; PULSE 46–76; RESP 9–21; TEMP 94–97.5; O2SAT 97–100
[~2024-08-15 11:24] MED LIST changes: -IOPAMIDOL 370 MG/ML 100 ML INFUS..BTL INJ ONE
[2024-08-15] MEDS: SODIUM CHLORIDE 0.9% 1000ML 1,000 ML ONE (12:22)
[2024-08-15] MEDS ORDERED: DEXAMETHASONE SOD PHOS INJ 4 MG/ML SDV ONE ×2 (12:42→15:14)
[2024-08-15] MEDS ORDERED: ONDANSETRON HCL INJ 2MG/ML 2ML 2 MG/ML VIAL ONE (12:42)
[2024-08-15] MEDS ORDERED: LIDOCAINE HCL 2% LOCAL INJ 5 ML SDV VIAL INJ ONE (12:42)
[2024-08-15] MEDS ORDERED: PROPOFOL IV EMULSION 10 MG/ML 20 ML VIAL ONE (12:43)
[2024-08-15] MEDS ORDERED: CISATRACURIUM BESYLATE 2 MG/ML IV ONE (12:53)
[2024-08-15] MEDS ORDERED: MIDAZOLAM HCL 2 MG/2 ML VIAL ONE (14:36)
[2024-08-15] MEDS ORDERED: FENTANYL CITRATE/PF 100MCG/2 ML INJ ONE (14:36)
[2024-08-15] MEDS ORDERED: EPINEPHRINE HCL 1:1000 1ML 1 MG/ML AMP ONE (14:37)
[2024-08-15] MEDS ORDERED: SUCCINYLCHOLINE CHLORIDE 20 MG/ML 10ML VIAL ONE (14:44)
[2024-08-15] MEDS ORDERED: FAMOTIDINE 20 MG/2 ML VIAL IV ONE (15:14)
[2024-08-15] MEDS ORDERED: ACETAMINOPHEN 1000 MG/100 ML IV PRN (15:15)
[2024-08-15] MEDS ORDERED: NALOXONE HCL INJ 0.4 MG/ML AMP IV PRN (15:15)
[2024-08-15] MEDS ORDERED: ONDANSETRON HCL INJ 2MG/ML 2ML 2 MG/ML VIAL IV PRN (15:15)
[2024-08-15] MEDS ORDERED: ACETAMINOPHEN 1000 MG/100 ML 100 ML IV ONE (15:16)
[2024-08-15] MEDS ORDERED: GLYCOPYRROLATE INJ 0.2 MG/ML VIAL ONE (16:20)
[2024-08-15] MEDS ORDERED: NEOSTIGMINE 1 MG/ML 10ML VIAL ONE (16:20)
[2024-08-15 17:20] LABS: BASOPHILS % 0.2 % (0.0-1.0); EOSINOPHILS % 0.3 % (0.0-6.0); LYMPHOCYTES % 8.7 % (18.0-39.1); MONOCYTES % 4.5 % (4.4-11.3); NEUTROPHILS % 85.9 % (38.7-80.0); RED CELL DISTRIBUTION WIDTH 13.5 % (11.7-14.4)
[2024-08-15 17:35] LABS: EST GLOMERULAR FILTRATION RATE 93.0 ML/MIN (>=60)
[2024-08-15] MEDS: MORPHINE SULFATE 1 MG/ML 30ML PCA ONE (18:03)
[2024-08-15] MEDS: DIPHENHYDRAMINE HCL INJ 50 MG/ML VIAL IM PRN (20:07)
[2024-08-15] MEDS: SODIUM CHLORIDE 0.9% 1000ML 1,000 ML IV SCH (20:09)
[2024-08-15] MEDS: HYDRALAZINE HCL 20 MG/ML VIAL IV PRN (22:39)
[2024-08-16] VITALS (73 sets, daily range): BP systolic 93–214; BP diastolic 52–209; PULSE 50–86; RESP 9–30; TEMP 96.4–98.9; O2SAT 94–100
[2024-08-16 06:24] LABS: BASOPHILS % 0.1 % (0.0-1.0); EOSINOPHILS % 0.0 % (0.0-6.0); LYMPHOCYTES % 8.5 % (18.0-39.1); MONOCYTES % 12.5 % (4.4-11.3); NEUTROPHILS % 78.5 % (38.7-80.0); RED CELL DISTRIBUTION WIDTH 13.4 % (11.7-14.4)
[2024-08-16 06:47] LABS: EST GLOMERULAR FILTRATION RATE 93.0 ML/MIN (>=60)
[2024-08-16] MEDS: SODIUM CHLORIDE 0.9% 250ML IRRIG IR SCH (07:15)
[2024-08-16] MEDS: MUPIROCIN 2% OINT 22 GM TUBE TOP SCH (10:47)
[2024-08-16] MEDS: MORPHINE SULFATE 1 MG/ML 30ML PCA IV PRN (18:27)
[2024-08-16] MEDS: SODIUM CHLORIDE 0.9% 1000ML 1,000 ML ONE (20:17)
[2024-08-16] MEDS: NICOTINE 21 MG/EA PATCH TOP SCH (20:23)
[2024-08-17] VITALS (31 sets, daily range): BP systolic 122–180; BP diastolic 49–135; PULSE 69–86; RESP 14–27; TEMP 97.5–98.5; O2SAT 97–100
[2024-08-17 06:44] LABS: BASOPHILS % 0.4 % (0.0-1.0); EOSINOPHILS % 0.1 % (0.0-6.0); LYMPHOCYTES % 11.5 % (18.0-39.1); MONOCYTES % 11.2 % (4.4-11.3); NEUTROPHILS % 76.4 % (38.7-80.0); RED CELL DISTRIBUTION WIDTH 13.8 % (11.7-14.4)
[2024-08-17 07:13] LABS: EST GLOMERULAR FILTRATION RATE 90.0 ML/MIN (>=60)
[2024-08-17] MEDS: POTASSIUM CHLORIDE 20MEQ/100ML 100 ML IV SCH (10:15)
[2024-08-17] MEDS: POTASSIUM CHLORIDE 20MEQ/100ML 100 ML IV ONE (21:25)
[2024-08-18] VITALS (11 sets, daily range): BP systolic 123–168; BP diastolic 61–76; PULSE 71–79; RESP 16–19; TEMP 97.5–98.1; O2SAT 92–100
[2024-08-18 05:18] LABS: BASOPHILS % 0.3 % (0.0-1.0); EOSINOPHILS % 0.4 % (0.0-6.0); LYMPHOCYTES % 13.2 % (18.0-39.1); MONOCYTES % 10.5 % (4.4-11.3); NEUTROPHILS % 75.1 % (38.7-80.0); RED CELL DISTRIBUTION WIDTH 13.6 % (11.7-14.4)
[2024-08-18 05:51] LABS: EST GLOMERULAR FILTRATION RATE 95.0 ML/MIN (>=60)
[2024-08-18] MEDS ORDERED: POTASSIUM CHLORIDE 10MEQ/100ML 200 ML ONE (11:42)
[2024-08-18] MEDS: POTASSIUM CHLORIDE 10MEQ/100ML 100 ML IV ONE (11:54)
[2024-08-18] MEDS: POTASSIUM CHLORIDE 10MEQ/100ML 300 ML IV ONE (12:07)
[2024-08-19] VITALS (10 sets, daily range): BP systolic 111–145; BP diastolic 63–74; PULSE 69–90; RESP 18–20; TEMP 97.6–98.3; O2SAT 97–100
[2024-08-19 05:39] LABS: BASOPHILS % 0.3 % (0.0-1.0); EOSINOPHILS % 0.3 % (0.0-6.0); LYMPHOCYTES % 10.8 % (18.0-39.1); MONOCYTES % 10.6 % (4.4-11.3); NEUTROPHILS % 77.6 % (38.7-80.0); RED CELL DISTRIBUTION WIDTH 13.4 % (11.7-14.4)
[2024-08-19 06:08] LABS: EST GLOMERULAR FILTRATION RATE 95.0 ML/MIN (>=60)
[2024-08-19] MEDS ORDERED: BISACODYL 10 MG SUPP PR PRN (14:15)
[2024-08-19] MEDS: POTASSIUM CHLORIDE 10MEQ/100ML 100 ML IV SCH (15:53)
[2024-08-19] MEDS: BISACODYL 10 MG SUPP PR ONE (15:54)
[2024-08-19] MEDS: SENNA-S TABLET PO SCH (15:54)
[2024-08-20] VITALS (10 sets, daily range): BP systolic 129–170; BP diastolic 63–81; PULSE 62–87; RESP 17–21; TEMP 97.7–98.5; O2SAT 92–100
[2024-08-20 08:14] LABS: BASOPHILS % 0.3 % (0.0-1.0); EOSINOPHILS % 1.3 % (0.0-6.0); LYMPHOCYTES % 12.7 % (18.0-39.1); MONOCYTES % 14.0 % (4.4-11.3); NEUTROPHILS % 71.5 % (38.7-80.0); RED CELL DISTRIBUTION WIDTH 13.8 % (11.7-14.4)
[2024-08-20 08:45] LABS: EST GLOMERULAR FILTRATION RATE 93.0 ML/MIN (>=60)
[2024-08-20] MEDS: TRAMADOL HCL 50 MG TAB PO PRN (09:33)
[2024-08-21] VITALS (8 sets, daily range): BP systolic 148–177; BP diastolic 65–76; PULSE 64–74; RESP 16–22; TEMP 97.9–99; O2SAT 95–100
[2024-08-21] MEDS: POTASSIUM CHLORIDE 20 MEQ TAB CR PO STA (06:17)
[2024-08-22] VITALS: BP 129/58; PULSE 66; RESP 20; TEMP 97.6; O2SAT 99
[2024-08-22 04:30] VITALS: BP 130/56; PULSE 62; RESP 18; TEMP 97.8; O2SAT 95
[2024-08-22 08:58] VITALS: BP 148/77; PULSE 58; RESP 19; TEMP 97.7; O2SAT 98
[2024-08-22 09:00] VITALS: PULSE 66; RESP 18; O2SAT 99
[2024-08-22 13:39] VITALS: BP 121/57; PULSE 61; RESP 18; TEMP 97.9; O2SAT 95
[2024-08-22 16:26] VITALS: BP 131/55; PULSE 61; RESP 19; TEMP 98.4; O2SAT 95
== END 2024-08-22 19:21 | disposition home or self-care (01) | DRG 657 ==
LOC: OR 11:24 → PACU V 15:22 → ICU 19:44 → MED/SURG 08-17 14:00
PROVIDERS: ADMIT Family Medicine; ATTEND Family Medicine
PROC: 0T9B70Z Drainage of Bladder with Drainage Device, Via Natural or Artificial Opening (ICD-10-PCS; 2024-08-15)
PROC: 0TB00ZZ Excision of Right Kidney, Open Approach (ICD-10-PCS; principal; 2024-08-15 14:00)
DX: C64.1 Malignant neoplasm of right kidney, except renal pelvis (principal); D62 Acute posthemorrhagic anemia; E87.1 Hypo-osmolality and hyponatremia; N20.0 Calculus of kidney; E11.9 Type 2 diabetes mellitus without complications; I10 Essential (primary) hypertension; E78.5 Hyperlipidemia, unspecified; E87.6 Hypokalemia; J44.9 Chronic obstructive pulmonary disease, unspecified; R53.81 Other malaise; Z79.82 Long term (current) use of aspirin; Z79.84 Long term (current) use of oral hypoglycemic drugs; Z88.5 Allergy status to narcotic agent; Z88.6 Allergy status to analgesic agent; F17.210 Nicotine dependence, cigarettes, uncomplicated
CPT/HCPCS: 36415; 71045; 71046; 74018; 80048; 80053; 82948; 83735; 85025; 86850; 86900; 86920; 88304; 88305; 88307; 88329; 88331; 93005; 94799; 99252; J0169; J0330; J0360; J0690; J1100; J1200; J1308; J2003; J2250; J2270; J2405; J2710; J3480; J7030

== ENCOUNTER → 2024-10-14 | Day surgery (SDC) | payer MEDICARE ==
[2024-10-13 11:42] LABS: BASOPHILS % 0.4 % (0.0-1.0); EOSINOPHILS % 0.8 % (0.0-6.0); LYMPHOCYTES % 21.7 % (18.0-39.1); MONOCYTES % 9.6 % (4.4-11.3); NEUTROPHILS % 67.4 % (38.7-80.0); RED CELL DISTRIBUTION WIDTH 12.8 % (11.7-14.4)
[2024-10-13 12:06] LABS: EST GLOMERULAR FILTRATION RATE 91.0 ML/MIN (>=60)
[~2024-10-14] MED LIST changes: +ACETAMINOPHEN 1000 MG/100 ML 100 ML IV ONE; +CEFTRIAXONE 1 GM VIAL ONE; +EPHEDRINE SULFATE INJ 50 MG/ML VIAL ONE; +FENTANYL CITRATE/PF 100MCG/2 ML INJ ONE; +LIDOCAINE HCL 2% LOCAL INJ 5 ML SDV VIAL INJ ONE; +ONDANSETRON HCL INJ 2MG/ML 2ML 2 MG/ML VIAL ONE; +PROPOFOL IV EMULSION 10 MG/ML 20 ML VIAL ONE; +SEVOFLURANE INHAL SOLN 250 ML PEN BTL ONE; +SODIUM CHLORIDE 0.9% 1000ML 1,000 ML ONE
[2024-10-14 10:11] VITALS: TEMP 97.6
[2024-10-14] MEDS: PHENAZOPYRIDINE HCL 100 MG TAB ONE (10:30)
[2024-10-14 11:25] VITALS: BP 125/54; PULSE 54; RESP 18; O2SAT 97
== END | disposition home or self-care (01) ==
LOC: OR 08:23
PROVIDERS: ATTEND Urology
DX: N20.0 Calculus of kidney (principal); N81.10 Cystocele, unspecified; N81.6 Rectocele; N36.41 Hypermobility of urethra; N95.2 Postmenopausal atrophic vaginitis; Z90.5 Acquired absence of kidney; I10 Essential (primary) hypertension; E78.5 Hyperlipidemia, unspecified; J44.9 Chronic obstructive pulmonary disease, unspecified; E11.9 Type 2 diabetes mellitus without complications; F17.200 Nicotine dependence, unspecified, uncomplicated; Z88.6 Allergy status to analgesic agent; Z88.8 Allergy status to other drugs, medicaments and biological substances; Z01.812 Encounter for preprocedural laboratory examination; Z01.818 Encounter for other preprocedural examination; Z79.82 Long term (current) use of aspirin; Z79.84 Long term (current) use of oral hypoglycemic drugs; Z79.899 Other long term (current) drug therapy
CPT/HCPCS: 36415 ×2; 50590; 74018; 80048; 82948; 83970; 84550; 85025; 87086; C1758; J0131; J0696; J2003; J2405; J2704; J3010; J7030

== ENCOUNTER → 2024-11-23 | Outpatient (REF) | payer MEDICARE ==
[~2024-11-23] MED LIST changes: -ACETAMINOPHEN 1000 MG/100 ML 100 ML IV ONE; -CEFTRIAXONE 1 GM VIAL ONE; -EPHEDRINE SULFATE INJ 50 MG/ML VIAL ONE; -FENTANYL CITRATE/PF 100MCG/2 ML INJ ONE; -LIDOCAINE HCL 2% LOCAL INJ 5 ML SDV VIAL INJ ONE; -ONDANSETRON HCL INJ 2MG/ML 2ML 2 MG/ML VIAL ONE; -PROPOFOL IV EMULSION 10 MG/ML 20 ML VIAL ONE; -SEVOFLURANE INHAL SOLN 250 ML PEN BTL ONE; -SODIUM CHLORIDE 0.9% 1000ML 1,000 ML ONE
== END ==
LOC: US 14:24
PROVIDERS: ATTEND Urology
DX: C64.1 Malignant neoplasm of right kidney, except renal pelvis (principal)
CPT/HCPCS: 71046; 76770; 76857

== ENCOUNTER → 2024-12-05 | Outpatient (REF) | payer MEDICARE | LOC: CT 09:11 | PROVIDERS: ATTEND Internal Medicine | DX: R06.09 Other forms of dyspnea (principal) | CPT/HCPCS: 71250 ==